=== PATIENT | male | born 1955 | race Caucasian/White ===

== ENCOUNTER 2017-07-21 19:52 | Emergency (ER) | payer MEDICAID, OTHER ==
[~2017-07-21 19:52] MED LIST: ATOR40TA16 PO; LISI-515 PO; METO25TA6 PO; PANT40TA3 PO; THERTAB15 PO; VITA100T2 PO; WALKER/ADULT/FO1 MIS
[2017-07-21 19:53] VITALS: BP 188/57; PULSE 108; RESP 16; TEMP 98.4; O2SAT 99
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
[2017-07-21] MEDS ORDERED: TRAM50TA PO (22:33)
[2017-07-21] MEDS ORDERED: GABA100C4 PO (22:33)
[2017-07-21] MEDS ORDERED: NORC5TAB PO (22:33)
[2017-07-21] MEDS ORDERED: NAPR500T PO (22:33)
--- NOTE | 2017-07-21 23:22 | RADRPT ---
EXAM DATE/TIME: 07/21/2017 21:25 [facility] COMPARISON: PELVIS COMPLETE MIN 3 VWS, September 21, 2016, 13:30. INDICATIONS : Patient complains of left hip pain status post fall today. MEDICAL HISTORY : None. SURGICAL HISTORY : Left hip ORIF. Left acetabulum ORIF. ENCOUNTER: Initial ACUITY: 1 day PAIN SCORE: 8/10 LOCATION: Left Hip FINDINGS: There is surgical hardware seen along the acetabulum. 3 screws are seen through the intertrochanteric region of the left femur. There appears to be lucency and suspected destruction of the superior acet abulum. The femoral head appears significantly reduced in size. A fracture is not clearly seen. CONCLUSION: Suspected destructive changes at the acetabulum and femoral head. These findings are difficult to ful ly evaluate given the overlying surgical hardware. Clarence Mar MD on July 21, 2017 at 23:19 Board Certified Radiologist. This report was verified electronically.
== END 2017-07-21 23:25 | disposition home or self-care (01) ==
LOC: NEPD 19:52
DX: S70.02XA Contusion of left hip, initial encounter (principal); E78.00 Pure hypercholesterolemia, unspecified; W05.0XXA Fall from non-moving wheelchair, initial encounter; Z79.899 Other long term (current) drug therapy
CPT/HCPCS: 73502; 99283

== ENCOUNTER → 2017-08-02 | Outpatient (CLI) | payer MEDICAID ==
[~2017-08-02] MED LIST changes: +GABA100C4 PO; +HYDR-3366 PO; +LISI10TA3 PO; +NAPR500T PO; +NORC5TAB PO; +TRAM50TA PO; -VITA100T2 PO; +XARE10TA PO
[2017-08-02 12:04] LABS: AUTOMATED NEUTROPHIL # 3.4 TH/MM3 (1.8-7.7); BASOPHIL # 0.1 TH/MM3 (0-0.2); BASOPHIL % 0.8 % (0.0-2.0); EOSINOPHIL # 0.3 TH/MM3 (0-0.4); EOSINOPHIL % 4.1 % (0.0-4.0); HEMATOCRIT 39.8 % (39.0-51.0); HEMO FLAGS DIFF FINAL; LYMPH % 32.7 % (9.0-44.0); LYMPHOCYTE # 2.3 TH/MM3 (1.0-4.8); MEAN CELL VOLUME 80.1 FL (80.0-100.0); MEAN CORPUSCULAR HGB CONC 33.7 % (32.0-36.0); MONO % 13.5 % (0.0-8.0); NEUT % 48.9 % (16.0-70.0); PLATELET COUNT 240 TH/MM3 (150-450); RED BLOOD COUNT 4.97 MIL/MM3 (4.50-5.90); RED CELL DISTRIBUTION WIDTH 14.5 % (11.6-17.2)
[2017-08-02 12:14] LABS: BLOOD, URINE TRACE (NEG); COMMENT (UR) CULT NOT INDICATED; CULTURE IF INDICATED CULT NOT INDICATED; GLUCOSE,URINE NEG (NEG); KETONE, URINE NEG (NEG); MUCUS URINE FEW /lpf (OCC); NITRITE,URINE NEG (NEG); URINE COLOR YELLOW (YELLW/STRAW)
[2017-08-02 12:16] LABS: APTT (PATIENT) 24.4 SEC (24.3-30.1)
[2017-08-02 12:24] LABS: WESTERGREN SEDIMENTATION RATE 31 mm/hr (0-20)
[2017-08-02 12:26] LABS: ANION GAP 7 MEQ/L (5-15); AST (GOT) 14 U/L (15-37); BLOOD UREA NITROGEN 14 MG/DL (7-18); CHLORIDE 106 MEQ/L (98-107); GLOMERULAR FILTRATION RATE 118 ML/MIN (>89); GLUCOSE,FASTING 101 MG/DL (74-99); POTASSIUM 4.2 MEQ/L (3.5-5.1); SODIUM (NA) 140 MEQ/L (136-145)
[2017-08-02 12:28] LABS: ALT (GPT) 29 U/L (12-78)
[2017-08-02 12:30] LABS: ALKALINE PHOSPHATASE 122 U/L (45-117); TOTAL BILIRUBIN ADULT 0.6 MG/DL (0.2-1.0)
--- NOTE | 2017-08-02 13:19 | RADRPT ---
EXAM DATE/TIME: 08/02/2017 12:55 [facility] COMPARISON: No previous studies available for comparison. INDICATIONS : Pre op for left total hip replacement. MEDICAL HISTORY : None. SURGICAL HISTORY : None. ENCOUNTER: Initial ACUITY: 1 day PAIN SCORE: 0/10 LOCATION: Bilateral chest FINDINGS: PA and lateral views of the chest demonstrate the lungs to be symmetrically aerated without evidence of mass, infiltrate or effusion. History of bypass.. Osseous structures are intact. CONCLUSION: No acute disease. Lance Ahumada MD FACR on August 02, 2017 at 13:13 Board Certified Radiologist. This report was verified electronically.
--- NOTE | 2017-08-03 19:33 | EKG ---
Date Performed: 08/02/2017 Time Performed: 12:25:55 PTAGE: 62 years EKG: Sinus rhythm NORMAL ECG PREVIOUS TRACING 09/08/2016 @ 09.45.06 DOCTOR: Antonino Castro Interpretating Date/Time 08/03/2017 19:31:35
== END ==
LOC: CPRE 11:25
PROVIDERS: ATTEND Orthopaedic Surgery Orthopaedic Trauma
DX: Z01.810 Encounter for preprocedural cardiovascular examination (principal); Z01.811 Encounter for preprocedural respiratory examination; Z01.818 Encounter for other preprocedural examination; Z01.812 Encounter for preprocedural laboratory examination; M25.50 Pain in unspecified joint; M79.609 Pain in unspecified limb; Z96.60 Presence of unspecified orthopedic joint implant; Z79.01 Long term (current) use of anticoagulants
CPT/HCPCS: 36415; 71020; 80053; 81001; 85025; 85610; 85652; 85730; 86140; 93005

== ENCOUNTER 2017-08-06 12:41 | Day surgery (SDC) | payer MEDICAID ==
[~2017-08-06 12:41] MED LIST changes: -ATOR40TA16 PO; -HYDR-3366 PO; -LISI-515 PO; -LISI10TA3 PO; -METO25TA6 PO; -NAPR500T PO; -PANT40TA3 PO; -THERTAB15 PO; -WALKER/ADULT/FO1 MIS; -XARE10TA PO
[2017-08-06] MEDS ORDERED: IOHEXOL 350 MG/ML 50 ML BTL (for RAD DIAG) OTHER ONE (12:42)
[2017-08-06 13:07] VITALS: BP 181/85; PULSE 97; RESP 20; TEMP 99; O2SAT 98
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
[2017-08-06 14:16] VITALS: BP 178/75; PULSE 85; RESP 17; TEMP 98.5; O2SAT 97
--- NOTE | 2017-08-06 16:47 | RADRPT ---
EXAM DATE/TIME: 08/06/2017 13:51 [facility] COMPARISON: No previous studies available for comparison. INDICATIONS : Patient presents with left hip pain in need of hip aspiration. MEDICAL HISTORY : HTN High cholesterol Acetabulum fracture SURGICAL HISTORY : CABG Hand surgery ORIF left hip ENCOUNTER: Initial ACUITY: >1 year PAIN SCORE: 3/10 LOCATION: Left hip FLUORO TIME: 0.8 minutes IMAGE SERIES: 1 CONTRAST: 0.5 cc Omnipaque 350 DEVICE(S): 22 gauge needle was placed into the left hip joint. FLUID: Total volume of 0.1 cc of clear red fluid was removed. Fluid specimen was submitted to the lab for evaluation. PROCEDURE : 1. Fluoroscopically guided left hip aspiration. The risks, benefits and alternatives to the procedure were explained and verbal and written consent w as obtained. The site was prepped in sterile fashion. Full sterile technique was used, including ca p, mask, sterile gloves and gown and a large sterile sheet. Hand hygiene and 2% chlorhexidine and/or betadine/alcohol prep was utilized per protocol for cutaneous antisepsis. The skin and subcutaneous tissues were infiltrated with local anesthetic solution. Under fluoroscopic guidance and utilizing an anterior oblique approach a 22 gauge spinal needle was p assed down to the subcapital femoral neck. Aspiration yielded no fluid. Contrast was injected into th e joint to confirm intra-articular position of the needle. 10 mL of sterile saline was instilled into the joint and aspiration allowed 0.1 mL return. This was sent for microbiological evaluation. The patient tolerated the procedure well and there were no complications. CONCLUSION: Uncomplicated aspiration as above. Remberto Betancourt Jr., MD on August 06, 2017 at 16:44 Board Certified Radiologist. This report was verified electronically.
== END 2017-08-06 14:30 | disposition home or self-care (01) ==
LOC: HROP 12:41 → HRIP 12:49 → HROP 14:30
PROVIDERS: ATTEND Physician Assistant
DX: S32.402A Unspecified fracture of left acetabulum, initial encounter for closed fracture (principal); I10 Essential (primary) hypertension; E78.00 Pure hypercholesterolemia, unspecified; Z95.1 Presence of aortocoronary bypass graft; Y92.410 Unspecified street and highway as the place of occurrence of the external cause
CPT/HCPCS: 20610; 77001; 87070; 87205; Q9967

== ENCOUNTER 2017-08-10 05:20 | Inpatient (IN) | payer MEDICAID, OTHER ==
[~2017-08-10] VITALS: Ht 171.4 cm; Wt 86.5 kg
[2017-08-10] MEDS ORDERED: CHLORHEXIDINE GLUCONATE 4% SOLN 120 ML BTL TOPICAL SCH (05:45)
[2017-08-10] MEDS ORDERED: INSULIN HUMAN REGULAR 1,000 UNITS/10 ML VIAL SQ PRN (05:45)
[2017-08-10] MEDS ORDERED: METOPROLOL TARTRATE 25 MG TAB PO PRN (05:45)
[2017-08-10] MEDS ORDERED: ceFAZolin 2 GM PREMIX 50 ML IV SCH (05:45)
[2017-08-10] MEDS ORDERED: POVIDONE IODINE 5% (ANTISEPSIS KIT) 4 APPLICATIONS EACH NARE PRN (05:45)
[2017-08-10] MEDS ORDERED: VANCOMYCIN 1000 MG/NS 250 ML (for <70 kg) IV SCH ×2 (05:45)
[2017-08-10] MEDS ORDERED: CHLORHEXIDINE GLUCONATE 2 % 1 PACK (2 CLOTHS) TOPICAL PRN (05:45)
[2017-08-10] MEDS ORDERED: SODIUM CHLORID 0.9% 500 ML IV PRN (05:45)
[2017-08-10] MEDS ORDERED: LACTATED RINGER'S 1000 ML IV PRN (05:45)
[2017-08-10] MEDS ORDERED: SODIUM CHLORIDE 0.9% IV SCH (06:00)
[2017-08-10] MEDS ORDERED: TRANEXAMIC ACID IV SCH (06:00)
[2017-08-10] MEDS ORDERED: EXPAREL PERI-ARTICULAR INJECTION (TOTAL VOL. 60 ML) P-ARTICULR SCH ×2 (06:00)
[2017-08-10] MEDS ORDERED: ACETAMINOPHEN 1000 MG/100 ML 100 ML IV ONE ×2 (06:05→10:15)
[2017-08-10] MEDS ORDERED: GENTAMICIN SULFATE 80 MG/2 ML VIAL ONE ×2 (06:32→11:00)
[2017-08-10] MEDS ORDERED: MORPHINE SULFATE 2 MG/ML INJ ONE (06:57)
[2017-08-10] MEDS ORDERED: MORPHINE SULFATE 2 MG/ML INJ IV ONE (07:30)
--- NOTE | 2017-08-10 11:56 | ECHRPT ---
Indication: vegetations CONCLUSIONS The left ventricular systolic function is low normal with an estimated ejection fraction in the rang e of 50- 55%. Normal left ventricular size. Trace mitral valve regurgitation. There is trace tricuspid valve regurgitation. The pulmonary valve is not well visualized. BP: / HR: Rhythm: MEASUREMENTS (Male / Female) Normal Values Technical Quality:Good 2D ECHO LV Diastolic Diameter PLAX 5.1 cm 4.2 - 5.9 / 3.9 - 5.3 cm LV Systolic Diameter PLAX 4.0 cm IVS Diastolic Thickness 1.4 cm 0.6 - 1.0 / 0.6 - 0.9 cm LVPW Diastolic Thickness 0.9 cm 0.6 - 1.0 / 0.6 - 0.9 cm LV Relative Wall Thickness 0.4 RV Internal Dim ED PLAX 3.4 cm FINDINGS LEFT VENTRICLE The left ventricular systolic function is low normal with an estimated ejection fraction in the rang e of 50- 55%. Normal left ventricular size. RIGHT VENTRICLE Normal right ventricular size and systolic function. LEFT ATRIUM The left atrial size is normal. RIGHT ATRIUM The right atrial size is normal. ATRIAL SEPTUM Normal atrial septal thickness without atrial level shunting by limited color doppler interrogation. AORTA The aortic root and proximal ascending aorta are normal in size on limited imaging. MITRAL VALVE Structurally normal mitral valve. Trace mitral valve regurgitation. AORTIC VALVE Trileaflet aortic valve. TRICUSPID VALVE Structurally normal tricuspid valve. There is trace tricuspid valve regurgitation. PULMONARY VALVE The pulmonary valve is not well visualized. VESSELS The inferior vena cava is normal in size. PERICARDIUM No pericardial effusion. Addison Milton MD, FACC, [facility] (Electronically Signed) Final Date:10 August 2017 11:56
--- NOTE | 2017-08-10 12:46 | MB ---
cc: JONY PACE M.D. DATE OF CONSULTATION 08/10/2017 REASON FOR CONSULTATION Kartik is a very pleasant 61-year-0ld gentleman with a history of coronary artery disease status post CABG approximately seven years ago, hypertension, severe osteoarthritis of the hip status post implant procedures, preop noncardiac surgery. The patient is essentially non-ambulatory with a walker. He can walk up to a half a block. He does not get short of breath or chest pain. States he has limited mobility with a wheelchair and does not get shortness breath or chest pain. REVIEW OF SYSTEMS Further review of systems is negative for any fevers, chills, cough GI, bleeding, orthopnea, except as noted in the history of present illness. PAST MEDICAL HISTORY Per history of present illness. MEDICATIONS IN THE HOSPITAL Consist of p.r.n. medications: 1. Vancomycin IV employee relations director 2. Cephazolin IV employee relations director ALLERGIES FOLIC ACID SOCIAL HISTORY Quit smoking a year ago. PHYSICAL EXAM VITAL SIGNS: There are no vital signs charted. GENERAL: He is alert and oriented times three in no acute distress. NECK: Supple. No JVD or bruit. CARDIOVASCULAR: S1 and S2. No murmurs, rubs or gallops. CHEST: Clear to auscultation bilaterally. ABDOMEN: Soft, nontender, nondistended. positive bowel sounds. EXTREMITIES: Shows no lower extremity edema. LABORATORY DATA On August 02, sodium 140, potassium 4.2, chloride 106, bicarb 27, BUN 14, creatinine 0.68, White count 7.9, hemoglobin 13.4, hematocrit 14.6, platelet count 240, INR is 1.0. EKG is normal. PHYSICAL EXAM VITAL SIGNS: Temperature 97.2, pulse 94, blood pressure 183/77, respiratory rate 20. Also note the Echo today's EF is 50-55% essentially normal. FINAL DIAGNOSIS 3. Osteoarthritis of the hip preop noncardiac surgery 4. Coronary disease 5. Status post CABG 6. Uncontrolled blood pressure 7. Hypertension DISCUSSION The patient's uncontrolled blood pressure is moderate to high risk for noncardiac surgery due to uncontrolled blood pressure, severely elevated systolic blood pressure. If possible would recommend controlling his blood pressure preop. MD ALBERTO Wolf/HELADIO /12:10 PM /12:32 PM
[2017-08-10] MEDS ORDERED: TETRACAINE PF 1% INJ 2 ML AMP ONE (13:12)
[2017-08-10] MEDS ORDERED: PROPOFOL 500 MG/50 ML INJ 100 ML ONE (14:34)
[2017-08-10] MEDS ORDERED: PROPOFOL 200 MG/20 ML AMP ONE (16:17)
--- NOTE | 2017-08-10 16:38 | PD.OP ---
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 My P.A. presence was necessary throughout this case for the manipulation and positioning of the surgical extremity. My P.A. was assisting me throughout the duration of this procedure. The skill set of a physician nurses medical assistants phlebotomists was medically necessary to complete this procedure. During the surgical case the surgical resident was working at the back table and the physician nurses medical assistants phlebotomists was directly assisting me. Operation and Findings: Weight bear as tolerated. DRAINS: 7-mm OSCAR drain. IMPLANTS USED DePuy Corail size [11] collared stem with a size [56] [place] Gription cup, 56/ 36 altrx liner, and a [36+1.5] ceramic Biolox ceramic head. DETAILS OF PROCEDURE: This patient has a long history of hip pain. Patient was found to have severe osteoarthritis and avascular necrosis secondary to previous acetabular fracture. Patient had complete collapse of the femoral head.. The patient had radiographic evidence of joint space narrowing with [id number] arthritis and osteophytes around the acetabulum as well as the femoral head. The patient failed conservative treatment with pain medications, anti-inflammatories, physical therapy, assistive devices including a cane, as well as therapeutic injection of the hip. The patient wished to proceed with surgery and informed consent was obtained. Operative site was marked. I discussed both posterior approach and anterior approach with patient decision was made for posterior approach. Patient was brought to OR and placed on OR table. IV sedation and general anesthesia was administered by anesthesiologist. Patient was positioned lateral on the operating room table and was given IV antibiotics. Time-out procedure was performed. The operative hip and leg were prepped with alcohol followed by Hibiclens and draped in the usual sterile fashion. Clean Air Suite was used for this procedure. The procedure began with a 8-inch incision over the posterolateral thigh through his previous incision. Subcutaneous tissue was dissected with Bovie. The fascia of the iliotibial band was incised. Gluteus muscle was split in line with fibers. Charnley retractor was placed. Piriformis and external rotator muscles were identified and then released from the posterior femur. There was dense scar tissue around the hip capsule. Care was taken to avoid injury to neurovascular structures including sciatic nerve. The hip capsule was incised and sutures were placed to help retract the capsule. At this point the femoral head and neck were identified. With soft tissue protected, oscillating saw was used to make a cut through the femoral neck, the femoral head was now removed. The femoral head was extremely flat. At this point attention was turned to preparation of the acetabulum. The labrum was excised. A portion of the hypertrophic capsule was also excised. Several screws were removed from the plate. The small spring plate was also removed. The cannulated screw from the anterior column was also removed. The acetabulum was sequentially reamed up to size 56. Care was taken to maintain appropriate version. A trial cup was placed and was found to be a good fit. A [place] cup was now fully impacted into the acetabulum and found to have excellent fit. 2 screws were placed through the cup for additional stability. The +4 10 56 /36 liner was now impacted into the cup. At this point attention was turned towards preparation of the proximal femur. 3 screws were removed from the proximal femur. Retractors were placed around the proximal femur to allow for exposure. A box osteotome was used to remove the lateral cortex of the femoral neck. A broach was used to help lateralize the prosthesis. Canal finder was used to create a path down the canal. Next, the canal was sequentially broached until there was an excellent fit. Calcar planer was placed. A trial head was placed and the hip was reduced. Trial head was now was placed and the hip was found to have excellent stability with good range of motion. The leg lengths were measured under clinically and found to be equal compared to preoperatively. Trial broach was removed. The Corail stem was opened. Stem was fully impacted into the proximal femur in appropriate version. The femoral head was placed. The hip was again reduced. The wound was thoroughly irrigated. Hip capsule, external rotators, and iliotibial band was closed with #1 Vicryl. A drain was placed deep into the wound. Subcutaneous tissue was closed with 3-0 Vicryl and the skin was closed with natalia and Dermabond skin closure. The capsule layers were injected with a mixture of saline and bupivicaine. Dressings were applied. The patient was transferred to Recovery Room in stable condition. Ben Mcneil MD Aug 10, 2017 16:38
[2017-08-10] MEDS ORDERED: Post-op Orders (for Pharmacy) MISC XX ONE (16:45)
[2017-08-10] MEDS ORDERED: NALOXONE HCL 0.4 MG/ML AMP IV PUSH PRN (16:45)
[2017-08-10] MEDS ORDERED: diphenhydrAMINE HCL 25 MG CAP PO PRN (16:45)
[2017-08-10] MEDS ORDERED: SODIUM CHLORIDE 0.9% FLUSH 5 ML FLUSH IVF PRN (16:45)
[2017-08-10] MEDS ORDERED: DO NOT ADM ANY ANTICOAGULANT DRUGS PRN (17:03)
[2017-08-10] MEDS ORDERED: KETOROLAC TROMETHAMINE 30 MG/ML (IVP) VIAL ONE (17:09)
[2017-08-10] MEDS ORDERED: *MEPERIDINE 25 MG INJ VIAL PERIprocedural Use ONLY ONE (17:10)
[2017-08-10] MEDS ORDERED: *morphine SULFATE 8 MG/ML PERIprocedure ONLY ONE (17:28)
--- NOTE | 2017-08-10 17:53 | RADRPT ---
EXAM DATE/TIME: 08/10/2017 17:10 [facility] COMPARISON: HIP LEFT (AP&LAT 2/3VWS) WO AP PELVIS, July 21, 2017, 21:25. HIP LEFT (AP&LAT 2/3VWS) W AP PELVIS , September 16, 2016, 15:47. INDICATIONS : Post op left hip surgery. MEDICAL HISTORY : acetabular fracture SURGICAL HISTORY : orif left hip ENCOUNTER: Initial ACUITY: 1 day PAIN SCORE: 5/10 LOCATION: Left hip FINDINGS: Examination of the left hip was performed with AP Pelvis. Multiple sideplates and osseous screws secu re an old acetabular fracture. There is an interval left total hip arthroplasty. Both the femoral and acetabular components appear to be appropriately positioned without fracture. OSCAR type drain overlies the prosthesis. CONCLUSION: 1. Sideplate and osseous screws securing the left acetabulum. These were present previously. 2. Interval left total hip arthroplasty appears to be radiographically intact. No fracture. Juan A Mishra MD on August 10, 2017 at 17:50 Board Certified Radiologist. This report was verified electronically.
[2017-08-10 18:25] VITALS: BP 155/69; PULSE 62; RESP 17; TEMP 96.2; O2SAT 97
[2017-08-10] MEDS: ACETAMINOPHEN/HYDROcodone 325 MG/10 MG TAB PO PRN (19:17)
[2017-08-10] MEDS: GABAPENTIN 100 MG CAP PO SCH (19:17)
[2017-08-10] MEDS: SODIUM CHLORIDE 0.9% FLUSH 5 ML FLUSH IVF SCH (19:36)
[2017-08-10] MEDS: ceFAZolin 2 GM PREMIX 50 ML IV SCH (19:36)
[2017-08-10 19:52] VITALS: O2SAT 97
[2017-08-10 20:50] VITALS: BP 152/69; PULSE 95; RESP 18; TEMP 97.6; O2SAT 98
[2017-08-10] MEDS: MORPHINE SULFATE 4 MG/ML INJ IV PUSH PRN (21:25)
[2017-08-10] MEDS: KETOROLAC TROMETHAMINE 30 MG/ML (IVP) VIAL IV PUSH SCH (21:26)
[2017-08-11 00:40] VITALS: BP 139/63; PULSE 84; RESP 17; TEMP 98.2; O2SAT 99
[2017-08-11] MEDS: ceFAZolin 2 GM PREMIX 50 ML IV SCH ×4 (02:46→20:51)
[2017-08-11] MEDS: ACETAMINOPHEN/HYDROcodone 325 MG/10 MG TAB PO PRN ×5 (02:47→20:52)
[2017-08-11] MEDS: VANCOMYCIN INJ 1,000 MG in SODIUM CHLOR 0.9% 250 ML INJ 250 ML IV SCH ×2 (03:47→16:07)
[2017-08-11 04:33] VITALS: BP 154/67; PULSE 88; RESP 17; TEMP 98.8; O2SAT 99
[2017-08-11] MEDS: KETOROLAC TROMETHAMINE 30 MG/ML (IVP) VIAL IV PUSH SCH ×3 (05:33→22:38)
--- NOTE | 2017-08-11 06:46 | PD.ORT.PN ---
Subjective Subjective Remarks Kartik is postop day #1 status post conversion to left total hip arthroplasty with removal of hardware from acetabulum. He is relatively comfortable. Objective Vitals Vital Signs Date Time Temp Pulse Resp B/P (MAP) Pulse Ox O2 Delivery O2 Flow Rate FiO2 08/11/17 04:33 98.8 88 17 154/67 (96) 99 08/11/17 00:40 98.2 84 17 139/63 (88) 99 08/10/17 20:50 97.6 95 18 152/69 (96) 98 08/10/17 19:52 97 Nasal Cannula 2.00 08/10/17 18:25 96.2 62 17 155/69 (97) 97 08/10/17 18:10 97.7 68 19 145/64 (91) 100 Nasal Cannula 2 08/10/17 18:00 66 16 150/57 (88) 100 Nasal Cannula 2 08/10/17 17:45 67 19 149/75 (99) 100 Nasal Cannula 2 08/10/17 17:30 66 19 150/67 (94) 100 Nasal Cannula 2 08/10/17 17:15 69 20 152/68 (96) 100 Nasal Cannula 2 08/10/17 17:00 97.6 65 20 102/57 (72) 98 Nasal Cannula 2 I/O 08/10/17 08/10/17 08/10/17 08/11/17 08/11/17 08/11/17 07:00 15:00 23:00 07:00 15:00 23:00 Intake Total 4110 ml 300 ml Output Total 1880 ml 590 ml Balance 2230 ml -290 ml Intake Oral 360 ml IV Total 50 ml 300 ml Other 3700 ml Output Urine Total 1275 ml 500 ml Drainage Total 105 ml 90 ml Estimated Blood Loss 500 ml # Bowel Movements 0 Imaging Last 24 hours Impressions Hip and Pelvis X-Ray 08/10/17 1631 Signed Impressions: Service Date/Time: Thursday, August 10, 2017 17:10 - CONCLUSION: 1. Sideplate and osseous screws securing the left acetabulum. These were present previously. 2. Interval left total hip arthroplasty appears to be radiographically intact. No fracture. Juan A Mishra MD Objective Remarks Clean dry dressing intact. Patient does have a foot drop from initial acetabular fracture. Sensation intact left foot. drain in place Assessment & Plan Assessment and Plan Postop day #1 status post conversion to left total hip arthroplasty 50% weightbearing with strict posterior hip precautions SCDs and SHERLYN thomas Lovenox/Trisha [facility] on Wednesday Ben Maldonado MD Aug 11, 2017 06:46
[2017-08-11] MEDS ORDERED: HYDR-3366 PO (06:47)
[2017-08-11] MEDS ORDERED: XARE10TA PO (06:47)
[2017-08-11 07:53] LABS: HEMATOCRIT 24.8 % (39.0-51.0); REVIEW FLAG FINAL
[2017-08-11 08:00] VITALS: BP 144/65; PULSE 79; RESP 17; TEMP 98; O2SAT 99
[2017-08-11] MEDS: SODIUM CHLORIDE 0.9% FLUSH 5 ML FLUSH IVF SCH ×2 (09:00→20:52)
[2017-08-11] MEDS: GABAPENTIN 100 MG CAP PO SCH ×3 (09:29→18:44)
[2017-08-11 12:00] VITALS: BP 147/67; PULSE 88; RESP 19; TEMP 98.4; O2SAT 99
[2017-08-11 16:00] VITALS: BP 152/68; PULSE 81; RESP 18; TEMP 98; O2SAT 100
[2017-08-11] MEDS: ENOXAPARIN SODIUM 30 MG/0.3 ML SYRINGE SQ SCH (16:07)
[2017-08-11] MEDS ORDERED: LISI10TA3 PO (19:22)
[2017-08-11] MEDS ORDERED: METO25TA6 PO (19:22)
[2017-08-11 20:33] VITALS: BP 138/63; PULSE 92; RESP 18; TEMP 99.6; O2SAT 100
[2017-08-11] MEDS: DOCUSATE SODIUM 100 MG CAP PO SCH (20:51)
[2017-08-12] MEDS: MORPHINE SULFATE 4 MG/ML INJ IV PUSH PRN (03:49)
[2017-08-12] MEDS: ceFAZolin 2 GM PREMIX 50 ML IV SCH ×4 (03:49→20:50)
[2017-08-12] MEDS: VANCOMYCIN INJ 1,000 MG in SODIUM CHLOR 0.9% 250 ML INJ 250 ML IV SCH ×2 (03:50→15:47)
[2017-08-12] MEDS: ENOXAPARIN SODIUM 30 MG/0.3 ML SYRINGE SQ SCH ×2 (03:51→15:46)
--- NOTE | 2017-08-12 07:08 | PD.ORT.PN ---
Subjective Subjective Remarks POD 2 s/p NAVI with conversion to left total hip reports significant pain overnight. states difficulty ambulating but working with therapy. he is extremely anxious about going home. reports that insurance will not cover rehab stay Objective Vitals Vital Signs Date Time Temp Pulse Resp B/P (MAP) Pulse Ox O2 Delivery O2 Flow Rate FiO2 08/11/17 20:33 99.6 92 18 138/63 (88) 100 08/11/17 16:00 98.0 81 18 152/68 (96) 100 08/11/17 12:00 98.4 88 19 147/67 (93) 99 08/11/17 08:00 98.0 79 17 144/65 (91) 99 I/O 08/11/17 08/11/17 08/11/17 08/12/17 08/12/17 08/12/17 07:00 15:00 23:00 07:00 15:00 23:00 Intake Total 780 ml 720 ml 660 ml 50 ml Output Total 590 ml 150 ml 400 ml Balance 190 ml 570 ml 260 ml 50 ml Intake Oral 480 ml 720 ml 360 ml IV Total 300 ml 300 ml 50 ml Output Urine Total 500 ml 125 ml 400 ml Drainage Total 90 ml 25 ml # Voids 2 # Bowel Movements 0 0 Result Diagram: 08/11/17 0633 Imaging Last 24 hours Impressions Hip and Pelvis X-Ray 08/10/17 1631 Signed Impressions: Service Date/Time: Thursday, August 10, 2017 17:10 - CONCLUSION: 1. Sideplate and osseous screws securing the left acetabulum. These were present previously. 2. Interval left total hip arthroplasty appears to be radiographically intact. No fracture. Juan A Mishra MD Objective Remarks LLE: Clean dry dressing intact. Patient does have a foot drop from initial acetabular fracture. Sensation intact left foot. drain in place. +CKS. Assessment & Plan Assessment and Plan 1) status post conversion to left total hip arthroplasty - POD 2 50% weightbearing with strict posterior hip precautions SCDs and SHERLYN thomas Lovenox/Xarelto CM to see if [facility] bed for rehab is an option pain control Baudilio Hare Aug 12, 2017 07:08
[2017-08-12 08:00] VITALS: BP 150/60; PULSE 80; RESP 19; TEMP 99.4; O2SAT 96
[2017-08-12] MEDS: DOCUSATE SODIUM 100 MG CAP PO SCH ×2 (08:09→20:50)
[2017-08-12] MEDS: GABAPENTIN 100 MG CAP PO SCH ×3 (08:10→18:24)
[2017-08-12] MEDS: SODIUM CHLORIDE 0.9% FLUSH 5 ML FLUSH IVF SCH ×2 (08:10→20:50)
[2017-08-12] MEDS: ACETAMINOPHEN/HYDROcodone 325 MG/10 MG TAB PO PRN ×4 (08:10→20:51)
[2017-08-12 09:07] VITALS: O2SAT 97
[2017-08-12 12:00] VITALS: BP 155/70; PULSE 76; RESP 18; TEMP 98.3; O2SAT 100
[2017-08-12 15:00] VITALS: BP 142/56; PULSE 86; RESP 18; TEMP 98.9; O2SAT 100
[2017-08-12 20:15] VITALS: BP 131/60; PULSE 76; RESP 18; TEMP 99.4; O2SAT 99
[2017-08-12 23:39] VITALS: BP 156/67; PULSE 94; RESP 18; TEMP 99.4; O2SAT 99
[2017-08-13] MEDS: ACETAMINOPHEN/HYDROcodone 325 MG/10 MG TAB PO PRN ×6 (00:10→20:51)
[2017-08-13] MEDS: ENOXAPARIN SODIUM 30 MG/0.3 ML SYRINGE SQ SCH ×2 (04:59→15:35)
[2017-08-13 07:47] VITALS: BP 153/68; PULSE 81; RESP 18; TEMP 99; O2SAT 97
[2017-08-13] MEDS: DOCUSATE SODIUM 100 MG CAP PO SCH ×2 (08:56→20:50)
[2017-08-13] MEDS: GABAPENTIN 100 MG CAP PO SCH ×3 (08:56→17:50)
[2017-08-13] MEDS: SODIUM CHLORIDE 0.9% FLUSH 5 ML FLUSH IVF SCH ×2 (08:57→20:49)
[2017-08-13 11:51] VITALS: BP 124/60; PULSE 80; RESP 18; TEMP 99.7; O2SAT 99
--- NOTE | 2017-08-13 13:18 | PD.ORT.PN ---
Subjective Subjective Remarks Pain controlled slowly progressing with physical therapy Objective Vitals Vital Signs Date Time Temp Pulse Resp B/P (MAP) Pulse Ox O2 Delivery O2 Flow Rate FiO2 08/13/17 11:51 99.7 80 18 124/60 (81) 99 08/13/17 09:57 16 08/13/17 07:47 99.0 81 18 153/68 (96) 97 08/12/17 23:39 99.4 94 18 156/67 (96) 99 08/12/17 20:15 99.4 76 18 131/60 (83) 99 08/12/17 15:00 98.9 86 18 142/56 (84) 100 I/O 08/12/17 08/12/17 08/12/17 08/13/17 08/13/17 08/13/17 07:00 15:00 23:00 07:00 15:00 23:00 Intake Total 540 ml 660 ml 720 ml Output Total 650 ml 825 ml Balance -110 ml 660 ml -105 ml Intake Oral 240 ml 360 ml 720 ml IV Total 300 ml 300 ml Output Urine Total 650 ml 825 ml # Voids 2 # Bowel Movements 0 0 0 Result Diagram: 08/11/17 0633 Imaging Last 24 hours Impressions Hip and Pelvis X-Ray 08/10/17 1631 Signed Impressions: Service Date/Time: Thursday, August 10, 2017 17:10 - CONCLUSION: 1. Sideplate and osseous screws securing the left acetabulum. These were present previously. 2. Interval left total hip arthroplasty appears to be radiographically intact. No fracture. Juan A Mishra MD Objective Remarks LLE: Clean dry dressing intact. Patient does have a foot drop from initial acetabular fracture. Sensation intact left foot. +CKS. Assessment & Plan Assessment and Plan 1) status post conversion to left total hip arthroplasty - POD 3 50% weightbearing with strict posterior hip precautions SCDs and SHERLYN thomas Lovenox/Xarelto CM to see if [facility] bed for rehab is an option pain control If discharge to home we will plan for Wednesday Kingsley Suarez Jr. Aug 13, 2017 13:18
[2017-08-13 16:00] VITALS: BP 124/64; PULSE 82; RESP 18; TEMP 98.9; O2SAT 98
[2017-08-13 20:00] VITALS: BP 129/61; PULSE 93; RESP 16; TEMP 100.1; O2SAT 99
[2017-08-14] VITALS: BP 129/53; PULSE 82; RESP 17; TEMP 100.4; O2SAT 97
[2017-08-14] MEDS: ACETAMINOPHEN/HYDROcodone 325 MG/10 MG TAB PO PRN ×4 (03:26→15:49)
[2017-08-14] MEDS: ENOXAPARIN SODIUM 30 MG/0.3 ML SYRINGE SQ SCH ×2 (03:26→15:49)
[2017-08-14 04:00] VITALS: BP 145/70; PULSE 84; RESP 16; TEMP 99.1; O2SAT 98
--- NOTE | 2017-08-14 07:04 | PD.ORT.PN ---
Subjective Subjective Remarks POD 4 s/p NAVI with conversion to left total hip states improving significantly. ambulating with walker and therapy. Objective Vitals Vital Signs Date Time Temp Pulse Resp B/P (MAP) Pulse Ox O2 Delivery O2 Flow Rate FiO2 08/14/17 04:24 17 08/14/17 04:00 99.1 84 16 145/70 (95) 98 08/14/17 00:00 100.4 82 17 129/53 (78) 97 08/13/17 20:00 100.1 93 16 129/61 (83) 99 08/13/17 16:00 98.9 82 18 124/64 (84) 98 08/13/17 11:51 99.7 80 18 124/60 (81) 99 08/13/17 07:47 99.0 81 18 153/68 (96) 97 I/O 08/13/17 08/13/17 08/13/17 08/14/17 08/14/17 08/14/17 07:00 15:00 23:00 07:00 15:00 23:00 Intake Total 720 ml 600 ml 960 ml 600 ml Output Total 825 ml Balance -105 ml 600 ml 960 ml 600 ml Intake Oral 720 ml 600 ml 960 ml 600 ml Output Urine Total 825 ml # Voids 3 3 2 # Bowel Movements 0 0 Result Diagram: 08/11/17 0633 Imaging Last 24 hours Impressions Hip and Pelvis X-Ray 08/10/17 1631 Signed Impressions: Service Date/Time: Thursday, August 10, 2017 17:10 - CONCLUSION: 1. Sideplate and osseous screws securing the left acetabulum. These were present previously. 2. Interval left total hip arthroplasty appears to be radiographically intact. No fracture. Juan A Mishra MD Objective Remarks LLE: Clean dry dressing intact. Patient does have a foot drop from initial acetabular fracture. Sensation intact left foot. +CKS. Assessment & Plan Assessment and Plan 1) status post conversion to left total hip arthroplasty - POD 4 50% weightbearing with strict posterior hip precautions SCDs and SHERLYN hose Lovenox/Xarelto pain control plan for DC home today/tomorrow with HHC f/u with Joel or [facility] in 2 weeks Baudilio Hare Aug 14, 2017 07:04
--- NOTE | 2017-08-14 07:05 | HHI.FF ---
Face to Face Verification Diagnosis: (1) Acetabulum fracture, left Physical Therapy Gait training, Transfer training, bed to chair Hip: Total hip, Protocol: Left, Posterior hip precautions Canvas Knee Splint: Other (only while in bed) Left LE Weight Bearing: Partial WB 50% Nursing Dressing Changes: Daily dressing change, Coverderm/Primapore (add xeroform on POD 10) I have seen patient Kartik Teresa on 08/14/17. My clinical findings support the need for the requested home health care services because: Ltd mobility - disease progression I certify that my clinical findings support that this patient is homebound because: Post-op weakness Baudilio Hare Aug 14, 2017 07:05
[2017-08-14] MEDS ORDERED: SOD PHOSPHATE/SOD BIPHOSPHATE (ADULT) ENEMA 133ML RECTAL ONE (08:30)
[2017-08-14 08:47] VITALS: BP 150/62; PULSE 85; RESP 16; TEMP 98.7; O2SAT 100
[2017-08-14] MEDS: DOCUSATE SODIUM 100 MG CAP PO SCH (08:49)
[2017-08-14] MEDS: GABAPENTIN 100 MG CAP PO SCH ×2 (08:49→12:04)
[2017-08-14] MEDS: SODIUM CHLORIDE 0.9% FLUSH 5 ML FLUSH IVF SCH (08:59)
== END 2017-08-14 18:40 | disposition home or self-care (01) | DRG 470 ==
LOC: HSDI 05:20 → N06A 18:37
PROVIDERS: ADMIT Orthopaedic Surgery Orthopaedic Trauma; ATTEND Orthopaedic Surgery Orthopaedic Trauma
PROC: 0QP504Z Removal of Internal Fixation Device from Left Acetabulum, Open Approach (ICD-10-PCS; 2017-08-10)
PROC: 0SRB04A Replacement of Left Hip Joint with Ceramic on Polyethylene Synthetic Substitute, Uncemented, Open Approach (ICD-10-PCS; principal; 2017-08-10 13:49)
DX: M87.252 Osteonecrosis due to previous trauma, left femur (principal); I10 Essential (primary) hypertension; M16.12 Unilateral primary osteoarthritis, left hip; I25.10 Atherosclerotic heart disease of native coronary artery without angina pectoris; K59.00 Constipation, unspecified; S32.46 Associated transverse-posterior fracture of acetabulum; Z95.1 Presence of aortocoronary bypass graft; Z87.891 Personal history of nicotine dependence
CPT/HCPCS: 73502; 76000; 85014; 85018; 86850; 86900; 86901; 86920; 87015; 87070; 87102; 87116; 87176; 87205; 87206; 93308; C9290; J0131; J0690; J1580; J1650; J1885; J2175; J2270; J3370; J7050; J7120

== ENCOUNTER 2018-08-02 23:55 | Inpatient (IN) ==
[2018-08-03] MEDS ORDERED: Morphine Inj 4 MG/ML Vial IV.PUSH ONE (00:29)
--- NOTE | 2018-08-03 00:35 | ED ---
HPI General Chief Complaint: Chest Pain Stated Complaint: Sharp chest pain, N/V Time Seen by Provider: 08/03/18 00:14 Source: patient Mode of arrival: ambulatory Limitations: no limitations History of Present Illness HPI narrative: The patient 63 years old and arrives to the ER complaining of chest pain about 1/10 described as a 1 pound weight resting on the region of the sternum and left chest. It was first noticed at about 11:00 today, approximately 11 1/2 hours prior. 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 He was having cigarette the back porch and shortly after standing and walking into the house the chest pain started. Patient took a 325 aspirin and chewed it. He went to sleep and woke up chest pain is gone. He returned to work this evening at about 7 and developed again the chest heaviness and was advised to come to the ED. At the end of the interview of the chest pain returned again retrosternal with a 1 pound weight-like sensation. He reports a history of CABG approximately 7 or 8 years ago. He is somewhat uncertain regarding whether or not he has hypertension high cholesterol or her chronic medical illness otherwise which he attributes to intermittent and poor primary care follow-up over the past few years due to unemployment status and financial difficulty. He reports currently smoking about 6 cigarettes/day. Patient also reports cough lately he believes there might be a pneumonia or URI contributing to his symptoms. MD complaint: Reports chest pain STEMI Alert: No Onset (ago): hour(s) Duration: intermittent Pain location: Reports substernal and left chest Severity scale (1-10): 1 Quality: Reports heaviness Pain radiation: Reports none Relieving factors: other Related Data Allergies Allergy/AdvReac Type Severity Reaction Status Date / Time folic acid Allergy Mild Rash Verified 08/10/17 05:42 Review of Systems ROS: all other systems reviewed are negative PMFSH Family History Family History Other Family history normal Social History Social History Recent Travel in [facility] within the Last 8 Weeks: No Recent Out of Country Travel within the Last 8 Weeks: No Exam Narrative Exam Narrative: GENERAL: 63-year-old male well-nourished well-developed speaking full sentences no acute distress SKIN: Focused skin assessment warm/dry. HEAD: Atraumatic. Normocephalic. EYES: Pupils equal and round. No scleral icterus. No injection or drainage. ENT: No nasal bleeding or discharge. Mucous membranes pink and moist. NECK: Trachea midline. No JVD. CARDIOVASCULAR: Regular rate and rhythm. No murmur appreciated. RESPIRATORY: No accessory muscle use. Clear to auscultation. Breath sounds equal bilaterally. GASTROINTESTINAL: Abdomen soft, non-tender, nondistended. Hepatic and splenic margins not palpable. MUSCULOSKELETAL: No obvious deformities. No clubbing. No cyanosis. No edema. NEUROLOGICAL: Awake and alert. No obvious cranial nerve deficits. Motor grossly within normal limits. Normal speech. PSYCHIATRIC: Appropriate mood and affect; insight and judgment normal. Course Initial Documented Vital Signs Temperature 98.5 F 08/02/18 23:59 Pulse Rate 89 08/02/18 23:59 Respiratory Rate 18 08/02/18 23:59 Blood Pressure 183/81 H 08/02/18 23:59 Pulse Oximetry 97 08/02/18 23:59 Last Documented Vital Signs Temperature 98.5 F 08/02/18 23:59 Pulse Rate 55 L 08/03/18 02:05 Respiratory Rate 16 08/03/18 02:05 Blood Pressure 168/77 H 08/03/18 02:05 Pulse Oximetry 97 08/03/18 02:05 Critical Care Time Critical Care Time: Yes Total Critical Care Time: 35 Attestation: Aggregate critical care time was 35 minutes. Time to perform other separately billable procedures was not included in the critical care time. My time did not include minutes spent treating any other patients simultaneously or on activities that did not directly contribute to the patient's treatment. The services I provided to this patient were to treat and/or prevent clinically significant deterioration that could result in: coronary occlusion, infarcted myocardium, heart failure I provided critical care services requiring my management, as noted below: Chart data review, documentation time, medication orders and management, vital sign assessments/reviewing monitor data, ordering and reviewing lab tests, ordering and interpreting/reviewing x-rays and diagnostic studies, care of the patient and discussion of the patient with the admitting physicians. Medical Decision Making MDM Narrative Medical decision making narrative: Patient has an NSTEMI. Heparin started. Nitro given here. Metoprolol ordered. Patient is chest pain-free at the time of reassessment approximately 2:05 AM. Case discussed with hospitalist Dr. Salazar. Admission for an STEMI evaluation. Medical Screen Exam Complete: Yes Emergency Medical Condition: Yes Differential Diagnosis Differential Diagnosis: NSTEMI, unstable angina, coronary vasospasm, PE, PTX, aortic dissection, pericarditis, myocarditis, endocarditis, PNA, esophageal disease, aneurysm, musculoskeletal etiologies, anxiety, cocaine/sympathomimetic abuse Lab Data Lab results reviewed: Yes I reviewed the patient's lab results. Result diagrams: 08/03/18 00:30 08/03/18 00:30 Lab Results 08/03/18 08/03/18 08/03/18 Range/Units 00:30 00:30 00:30 WBC 8.8 (4.0-11.0) th/mm3 RBC 5.07 (4.50-5.90) mil/mm3 Hgb 14.8 (13.0-17.0) gm/dL Hct 43.9 (39.0-51.0) % MCV 86.7 (80.0-100.0) fL MCH 29.2 (27.0-34.0) pg MCHC 33.8 (32.0-36.0) % RDW 13.2 (11.6-17.2) % Plt Count 205 (150-450) th/mm3 MPV 8.6 (7.0-11.0) fL Neut % (Auto) 46.1 (16.0-70.0) % Lymph % (Auto) 34.2 (9.0-44.0) % [place] % (Auto) 14.1 H (0.0-8.0) % Eos % (Auto) 4.5 H (0.0-4.0) % Baso % (Auto) 1.1 (0.0-2.0) % Neut # (Auto) 4.1 (1.8-7.7) th/mm3 Lymph # (Auto) 3.0 (1.0-4.8) th/mm3 [place] # (Auto) 1.2 H (0.0-0.9) th/mm3 Eos # (Auto) 0.4 (0.0-0.4) th/mm3 Baso # (Auto) 0.1 (0.0-0.2) th/mm3 WBC Differential . Differential Comment Auto diff final PT (9.8-11.6) sec INR Ratio APTT (24.3-30.1) sec Sodium 141 (136-145) meq/L Potassium 4.0 (3.5-5.1) meq/L Chloride 109 H (98-107) meq/L Carbon Dioxide 25.0 (21.0-32.0) meq/L Anion Gap 7 (5-15) meq/L BUN 14 (7-18) mg/dL Creatinine 0.98 (0.60-1.30) mg/dL Estimated GFR 77 L (>89) mL/min Random Glucose 153 H (74-106) mg/dL Calcium 8.7 (8.5-10.1) mg/dL Total Bilirubin 0.4 (0.2-1.0) mg/dL AST 16 (15-37) U/L ALT 32 (12-78) U/L Alkaline Phosphatase 116 (45-117) U/L Troponin I 0.38 H (0.02-0.05) ng/mL B-Natriuretic Peptide 20 (0-100) pg/mL Total Protein 6.7 (6.4-8.2) g/dL Albumin 3.4 (3.4-5.0) g/dL Lipase 72 L (73-393) U/L 08/03/18 Range/Units 01:55 WBC (4.0-11.0) th/mm3 RBC (4.50-5.90) mil/mm3 Hgb (13.0-17.0) gm/dL Hct (39.0-51.0) % MCV (80.0-100.0) fL MCH (27.0-34.0) pg MCHC (32.0-36.0) % RDW (11.6-17.2) % Plt Count (150-450) th/mm3 MPV (7.0-11.0) fL Neut % (Auto) (16.0-70.0) % Lymph % (Auto) (9.0-44.0) % [place] % (Auto) (0.0-8.0) % Eos % (Auto) (0.0-4.0) % Baso % (Auto) (0.0-2.0) % Neut # (Auto) (1.8-7.7) th/mm3 Lymph # (Auto) (1.0-4.8) th/mm3 [place] # (Auto) (0.0-0.9) th/mm3 Eos # (Auto) (0.0-0.4) th/mm3 Baso # (Auto) (0.0-0.2) th/mm3 WBC Differential Differential Comment PT 10.1 (9.8-11.6) sec INR 1.0 Ratio APTT 22.2 L (24.3-30.1) sec Sodium (136-145) meq/L Potassium (3.5-5.1) meq/L Chloride (98-107) meq/L Carbon Dioxide (21.0-32.0) meq/L Anion Gap (5-15) meq/L BUN (7-18) mg/dL Creatinine (0.60-1.30) mg/dL Estimated GFR (>89) mL/min Random Glucose (74-106) mg/dL Calcium (8.5-10.1) mg/dL Total Bilirubin (0.2-1.0) mg/dL AST (15-37) U/L ALT (12-78) U/L Alkaline Phosphatase (45-117) U/L Troponin I (0.02-0.05) ng/mL B-Natriuretic Peptide (0-100) pg/mL Total Protein (6.4-8.2) g/dL Albumin (3.4-5.0) g/dL Lipase (73-393) U/L ECG Data Attestation: I personally reviewed and interpreted this ECG as follows: (SINus, normal axis and intervals, non-specific TW changes multiple leads) Discharge Plan Discharge Disposition Patient Disposition: 30 Still Patient Physicians Team ED Provider: Karthik De La Torre Primary Care Provider: Primary Care Sonam,Zohreh Attending Provider: Mali Salazar Status ED Status: Admitted Patient
[2018-08-03 00:46] LABS: Baso # (Auto) 0.1 th/mm3 (0.0-0.2); Baso % (Auto) 1.1 % (0.0-2.0); Eos # (Auto) 0.4 th/mm3 (0.0-0.4); Eos % (Auto) 4.5 % (0.0-4.0); Hematocrit 43.9 % (39.0-51.0); Hemoglobin 14.8 gm/dL (13.0-17.0); Lymph % (Auto) 34.2 % (9.0-44.0); Mean Corpuscular HGB Conc 33.8 % (32.0-36.0); Mean Corpuscular Hemoglobin 29.2 pg (27.0-34.0); Mean Corpuscular Volume 86.7 fL (80.0-100.0); Mean Platelet Volume 8.6 fL (7.0-11.0); Mono # (Auto) 1.2 th/mm3 (0.0-0.9); Mono % (Auto) 14.1 % (0.0-8.0); Neut # (Auto) 4.1 th/mm3 (1.8-7.7); Neut % (Auto) 46.1 % (16.0-70.0); Platelet Count 205 th/mm3 (150-450); Red Blood Count 5.07 mil/mm3 (4.50-5.90); Red Cell Distribution Width 13.2 % (11.6-17.2); White Blood Count 8.8 th/mm3 (4.0-11.0)
[2018-08-03 01:05] LABS: Alanine Aminotransferase 32 U/L (12-78); Albumin 3.4 g/dL (3.4-5.0); Anion Gap 7 meq/L (5-15); Aspartate Aminotransferase 16 U/L (15-37); Blood Urea Nitrogen 14 mg/dL (7-18); Calcium 8.7 mg/dL (8.5-10.1); Chloride 109 meq/L (98-107); Glomerular Filtration Rate 77 mL/min (>89); Glucose,Random 153 mg/dL (74-106); Lipase 72 U/L (73-393); Sodium 141 meq/L (136-145)
[2018-08-03 01:09] LABS: Alkaline Phosphatase 116 U/L (45-117); Total Protein 6.7 g/dL (6.4-8.2); Troponin I 0.38 ng/mL (0.02-0.05)
[2018-08-03] MEDS ORDERED: Heparin 10,000 UNITS/10 ML Vial (for IV use) IV.PUSH STA (01:14)
[2018-08-03] MEDS ORDERED: Metoprolol Inj 5 MG/5 ML Vial IV.PUSH PRN (01:14)
[2018-08-03] MEDS ORDERED: Heparin Drip 25,000 UNIT/250 ML BAG IV.CONT PRN (01:14)
--- NOTE | 2018-08-03 01:29 | XR ---
EXAM DATE: 08/03/2018 12:29 AM EDT AGE/SEX: 63 years / Male INDICATIONS: Substernal and left side chest pressure. CLINICAL DATA: This is the patient's initial encounter. Patient reports that signs and symptoms have been present for 1 day and indicates a pain score of 1/10. MEDICAL/SURGICAL HISTORY: Hypertension. Coronary artery disease. CABG. COMPARISON: No prior exams available for comparison. FINDINGS: The cardiac silhouette is enlarged in transverse diameter. The lungs are free of acute parenchymal op acity. No effusions are identified. Median sternotomy wires are present. CONCLUSION Cardiomegaly. No acute pulmonary disease. Electronically signed by: Alex Crump MD 08/03/2018 1:28 AM EDT
[2018-08-03 02:23] LABS: Activated Partial Thrombo Time 22.2 sec (24.3-30.1); Prothrombin Time 10.1 sec (9.8-11.6)
--- NOTE | 2018-08-03 03:09 | P.HP ---
History of Present Illness Service: [facility] Primary Care Physician: No Primary Care Physician History of Present Illness: 63-year-old male with a past medical history significant for coronary artery disease status post CABG x5 presents to the emergency department for the evaluation of chest pain. The patient reports that yesterday morning after work he had a sharp chest pain followed by emesis. He denies any diaphoresis or shortness of breath. He reports that the chest pain continued intermittently all day and he had elevated blood pressures at home. He took a 325 mg aspirin and took a nap. He went to work earlier this evening and when he was walking down the woods his chest pain returned. He described it as a pressure at that time. He states that his nausea also returned. He denies any fever/chills. No abdominal pain. No lateralizing signs/symptoms. Inpatient Certification: I certify that the inpatient services were ordered in accordance with Medicare regulations governing the order. This includes certification that hospital inpatient services are reasonable and necessary and in the case of services not specified as inpatient-only under 42 CFR 419.22(n), that they are appropriately provided as inpatient services in accordance to with the 2-midnight benchmark under 43 CFR 412.3(e) Estimated Total Length of Stay (Days): 2 Plans for Post Hospital Care: Not yet determined Review of Systems All other systems reviewed negative except as stated in [facility] - History History Provided By: Patient - Medical History Medical History: Medical History (Last Reviewed 08/03/18 @ 03:05 by Mali Salazar MD) CAD (coronary artery disease) HTN (hypertension) - Surgical History Surgical History: Surgical History (Last Reviewed 08/03/18 @ 03:05 by Mali Salazar MD) History of hip surgery Hx of CABG - Family History Family History: Family History (Last Updated 08/03/18 @ 03:05 by Mali Salazar MD) Other Family history normal - Travel History Recent Travel in the [place] Within the Last 8 Weeks: No Recent Travel Out of the Country Within the Last 8 Weeks: No Medications and Allergies Active Medications: Active Medications Heparin Sodium/Dextrose (Heparin/D5w 25,000 U/250 Ml) 25,000 unit in 250 mls @ 0 mls/hr IV.CONT TITRATE PRN; Protocol PRN Reason: Per Protocol Last Admin: 08/03/18 02:49 Dose: 1,000 units/hr, 10 mls/hr Metoprolol Tartrate (Lopressor Inj) 5 mg IV.PUSH Q5M PRN PRN Reason: CHEST PAIN Last Admin: 08/03/18 02:00 Dose: 5 mg Sodium Chloride (Ns Flush) 2 ml IV.FLUSH UNSCH PRN PRN Reason: FLUSH AFTER USING IV ACCESS Last Admin: 08/03/18 00:56 Dose: 2 ml Allergies Allergy/AdvReac Type Severity Reaction Status Date / Time folic acid Allergy Mild Rash Verified 08/10/17 05:42 Exam Vital signs: Vital Signs 08/02/18 23:59 08/03/18 02:05 Temperature 98.5 F Pulse Rate 89 55 L Respiratory Rate 18 16 Blood Pressure 183/81 H 168/77 H Pulse Oximetry 97 97 Intake & Output 08/02/18 08/02/18 08/03/18 06:59 18:59 06:59 Weight 90.718 kg Narrative: Gen.: No acute distress Head: Normocephalic. Atraumatic. EENT: Pupils equal round and reactive to light. Nose without drainage. Airway intact. Throat without injection. Cardiovascular: Regular rate and rhythm. No murmurs, rubs or gallops. Respiratory: Lungs clear to auscultation bilaterally. No wheezes or rhonchi. Abdomen: Soft, nontender, nondistended. No peritoneal signs. Musculoskeletal: No gross deformities. No edema. Skin: No obvious rashes or erythema. Neuro: Sensory and motor grossly intact. Cranial nerves II through XII grossly intact. Results - Labs CBC & Chem 7: 08/03/18 00:30 08/03/18 00:30 Labs: Laboratory Results - last 24 hr 08/03/18 08/03/18 08/03/18 00:30 00:30 00:30 WBC 8.8 RBC 5.07 Hgb 14.8 Hct 43.9 MCV 86.7 MCH 29.2 MCHC 33.8 RDW 13.2 Plt Count 205 MPV 8.6 Neut % (Auto) 46.1 Lymph % (Auto) 34.2 [place] % (Auto) 14.1 H Eos % (Auto) 4.5 H Baso % (Auto) 1.1 Neut # (Auto) 4.1 Lymph # (Auto) 3.0 [place] # (Auto) 1.2 H Eos # (Auto) 0.4 Baso # (Auto) 0.1 WBC Differential . Differential Comment Auto diff final PT INR APTT Sodium 141 Potassium 4.0 Chloride 109 H Carbon Dioxide 25.0 Anion Gap 7 BUN 14 Creatinine 0.98 Estimated GFR 77 L Random Glucose 153 H Calcium 8.7 Total Bilirubin 0.4 AST 16 ALT 32 Alkaline Phosphatase 116 Troponin I 0.38 H B-Natriuretic Peptide 20 Total Protein 6.7 Albumin 3.4 Lipase 72 L 08/03/18 01:55 WBC RBC Hgb Hct MCV MCH MCHC RDW Plt Count MPV Neut % (Auto) Lymph % (Auto) [place] % (Auto) Eos % (Auto) Baso % (Auto) Neut # (Auto) Lymph # (Auto) [place] # (Auto) Eos # (Auto) Baso # (Auto) WBC Differential Differential Comment PT 10.1 INR 1.0 APTT 22.2 L Sodium Potassium Chloride Carbon Dioxide Anion Gap BUN Creatinine Estimated GFR Random Glucose Calcium Total Bilirubin AST ALT Alkaline Phosphatase Troponin I B-Natriuretic Peptide Total Protein Albumin Lipase Caprini VTE Risk Assessment Caprini VTE Risk Assessment: Moderate/High Risk (score >= 2) Caprini Risk Assessment Model: Point Value = 1 Point Value = 2 Point Value = 3 Point Value = 5 Age 41-60 Minor surgery BMI > 25 kg/m2 Swollen legs Varicose veins or History of unexplained or recurrent spontaneous Oral contraceptives or hormone replacement Sepsis (< 1 month) Serious lung disease, including pneumonia (< 1 month) Abnormal pulmonary function Acute myocardial infarction Congestive heart failure (< 1 month) History of inflammatory bowel disease Medical patient at bed rest Age 61-74 Arthroscopic surgery Major open surgery (> 45 min) Laparoscopic surgery (> 45 min) Malignancy Confined to bed (> 72 hours) Immobilizing plaster cast Central venous access Age >= 75 History of VTE Family history of VTE Factor V Leiden Prothrombin 27630C Lupus anticoagulant Anticardiolipin antibodies Elevated serum homocysteine Heparin-induced thrombocytopenia Other congenital or acquired thrombophilia Stroke (< 1 month) Elective arthroplasty Hip, pelvis, or leg fracture Acute spinal cord injury (< 1 month) Prophylaxis Regimen: Total Risk Factor Score Risk Level Prophylaxis Regimen 0-1 Low Early ambulation 2 Moderate Order ONE of the following: *Sequential Compression Device (SCD) *Heparin 5000 units SQ BID 3-4 Higher Order ONE of the following medications: *Heparin 5000 units SQ TID *Enoxaparin/Lovenox 40 mg SQ daily (WT < 150 kg, CrCl > 30 mL/min) *Enoxaparin/Lovenox 30 mg SQ daily (WT < 150 kg, CrCl > 10-29 mL/min) *Enoxaparin/Lovenox 30 mg SQ BID (WT < 150 kg, CrCl > 30 mL/min) AND/OR *Sequential Compression Device (SCD) 5 or more Highest Order ONE of the following medications: *Heparin 5000 units SQ TID (Preferred with Epidurals) *Enoxaparin/Lovenox 40 mg SQ daily (WT < 150 kg, CrCl > 30 mL/min) *Enoxaparin/Lovenox 30 mg SQ daily (WT < 150 kg, CrCl > 10-29 mL/min) *Enoxaparin/Lovenox 30 mg SQ BID (WT < 150 kg, CrCl > 30 mL/min) AND *Sequential Compression Device (SCD) Assessment and Plan - Plan Assessment/plan: 1. NSTEMI EKG without ST segment elevation or depression, personally reviewed Troponin 0.38 Serial troponins/EKGs Heparin bolus and drip Cardiology consulted, appreciate assistance FEN N.p.o. Electrolytes: Monitor and replete as needed
[2018-08-03 10:08] LABS: Hematocrit 40.5 % (39.0-51.0); Hemoglobin 14.3 gm/dL (13.0-17.0); Mean Corpuscular HGB Conc 35.3 % (32.0-36.0); Mean Corpuscular Hemoglobin 30.1 pg (27.0-34.0); Mean Corpuscular Volume 85.3 fL (80.0-100.0); Mean Platelet Volume 8.9 fL (7.0-11.0); Platelet Count 185 th/mm3 (150-450); Red Blood Count 4.75 mil/mm3 (4.50-5.90); Red Cell Distribution Width 13.2 % (11.6-17.2); White Blood Count 7.7 th/mm3 (4.0-11.0)
[2018-08-03 10:45] LABS: Troponin I 0.47 ng/mL (0.02-0.05)
[2018-08-03] MEDS ORDERED: Heparin 10,000 UNITS/10 ML Vial (for IV use) ONE ×2 (12:07→19:17)
--- NOTE | 2018-08-03 13:44 | ECG ---
Date Performed: 08/03/2018 Time Performed: 09:51:44 PTAGE: 63 years EKG: Sinus rhythm . PREVIOUS TRACING : 08/03/2018 01.36 DOCTOR: Elda Ramirez M.D. Interpretating Date/Time 08/03/2018 13:42:37
[2018-08-03 14:10] LABS: Troponin I 0.41 ng/mL (0.02-0.05)
[2018-08-03] MEDS ORDERED: Iohexol 350 MG/ML 50 ML Vial (for Cath Lab) IVCONTRAST ONE (18:10)
[2018-08-03] MEDS ORDERED: Iohexol 350 MG/ML 100 ML Vial (for Cath Lab) IVCONTRAST ONE (18:10)
[2018-08-03] MEDS ORDERED: fentaNYL Citrate Inj 100 MCG/2 ML Ampul ONE (18:20)
--- NOTE | 2018-08-03 18:29 | ECG ---
Date Performed: 08/03/2018 Time Performed: 00:43:22 PTAGE: 63 years EKG: Sinus rhythm POSSIBLE INFERIOR MYOCARDIAL INFARCTION BORDERLINE ECG PREVIOUS TRACING : 08/02/2017 12.25 Since the previous tracing, no significant change noted DOCTOR: William Morataya Interpretating Date/Time 08/03/2018 18:27:09
--- NOTE | 2018-08-03 18:29 | ECG ---
Date Performed: 08/03/2018 Time Performed: 01:36:07 PTAGE: 63 years EKG: Sinus rhythm WITH SINUS ARRHYTHMIA POSSIBLE INFERIOR MYOCARDIAL INFARCTION BORDERLINE ECG PREVIOUS TRACING : 08/03/2018 00.43 Since the previous tracing, no significant change noted DOCTOR: William Morataya Interpretating Date/Time 08/03/2018 18:27:33
[2018-08-03] MEDS ORDERED: Heparin 10,000 UNITS/10 ML Vial (for IV use) IV.PUSH PRN ×2 (18:30)
--- NOTE | 2018-08-03 20:22 | CATHPROC ---
? HIS Report Study Information Study Number Admission Scheduled Start Study Start [id number] Aug 03 2018 2:00AM 08/03/2018 Aug 03 2018 6:16PM [facility] Cardiac Catheterization Admit Source Facility Department Other [facility] - [facility] Wellness Coordinator Physician and Clinical Staff Initial Jose Enrique Grace Street Light Lamp Cleaner Adiel Rocha,YOVANA Street Light Lamp Cleaner Joe Quiñonez,RN Recorder Ramon Ga,RT(R) Scrub Radha Velazquez,RT(R) Procedures Performed Procedure Location (Site) Vessel Name Angiogram LV LV Ventricle Coronary Angiograms LCA Left Coronary Coronary Angiograms RCA Right Coronary Coronary Angiograms SVG-OM CIRC Coronary Angiograms BOCANEGRA BOCANEGRA Coronary Angiograms YAA Drug Eluting Inflatio SVG-OM CIRC L Heart Cath PTCA SVG-OM CIRC Wire insertion Fem Art (right) Femoral Art Equipment Time Ibm Websphere Commerce Developer Description Size Mfg Part Number Used/Scraped WIRE, BALANCE MIDDLEWEIGHT [id number] 19:21 [employer] 190CM Used 190CM *[id number] TRANSDUCER, TRUWAVE [id number] 18:18 DAS BRADY * Used W/STOCKCOCK *[id number] INTRODUCER SET, 18:18 [employer] FR 5 [id number] *[id number] Used MICROPUNCTURE STIFF [phone] *[id number] [id number] *[id number] 534-520T *[id number] *[id number] [id number] *[id number] 534-550S *[id number] 20:05 DAIG/ST. EULOGIO MEDICAL ANGIOSEAL, FR6 VIP FR 6 Used *[id number] ENDOVASCULAR WIRE, SPIDERFX 4.0 X [id number] 19:19 40 X 320CM Used COMPANY 320/190CM *[id number] 18:18 [employer] BLANKET,WARM AIR CCL * Used *[id number] 18:18 [employer] PACK, CCL CUSTOM * Used *[id number] 19:34 MEDTRONIC BALLOON, 2.0 X 12MM EUPHORA 12MM Used *[id number] BALLOON, 3.25 X 12MM NC [id number] 19:55 MEDTRONIC 12MM Used EUPHORA *[id number] 19:43 MEDTRONIC STENT, 3.0 15MM LUCRETIA 3.0 15MM Used *[id number] 19:34 DoctorC MEDICAL 30 CHILO INDEFLATOR Used *[id number] 18:18 DoctorC MEDICAL WIRE, 3MMJ .035 180CM 180CM Used *[id number] 18:18 NAMIC MANIFOLD, 4 PORT * Used *[id number] 18:18 NYCOMED OMNIPAQUE, 350 MG, 150ML 150ML [id number] Used 19:23 NYCOMED OMNIPAQUE, 350 MG, 150ML 150ML [id number] Used 19:11 NYCOMED OMNIPAQUE, 350 MG, 50ML 50ML [id number] Used [id number] 18:18 TERUMO MEDICAL SHEATH, FR5 TERUMO (10CM) FR 5 Used *[id number] 19:17 TERUMO MEDICAL SHEATH, FR6 TERUMO (10CM) FR 6 Used *[id number] Equipment Model, Serial, Lot Number and Expiration Data Description Model Number Serial Number Lot Number Expiration Date ANGIOSEAL, FR6 [facility] [id number] 03-17-2019 STENT, 3.0 15MM LUCRETIA [id number] 02-17-2020 WIRE, SPIDERFX 4.0 X 320/190CM [id number] 06-30-2020 History: Current Medications Medication Dosage/Unit Route Frequency Last Date/Time Taken ASA NTG Patch History: Allergies Allergy Reaction No Known Allergies folic acid Rash History: Risk Factors Family History of Hypertension Dyslipidemia Previous MS Previous Heart Failure Premature CAD Yes Yes No No No Prior Valve Prior PCI Prior CABG Prior CABGDate Surgery No No Yes 10/18/2009 Cerebrovascular Peripheral Artery Chronic Lung On Dialysis Diabetes Disease Disease Disease No No No No No History: Risk Factors Selection Items Current Smoker History: CV Disease Selection Items Known CAD History: Stress Tests Stress or Imaging Studies Performed No History: Other Disease Selection Items CAD HTN History: Other Current Smoker Method Packs a Day Years Used Pack Years Yes Cigarettes 1 50 50 Labs Hgb (g/dl) Hct (%) WBC (l/cumm) Platelets (thousands) 11.60-17.00 35.00-51.00 4.00-11.00 150.00-450.00 14.8 43.9 8.8 205 Glucose (mg/dl) BUN (mg/dl) Creatinine (mg/dl) BUN:Creatinine (1:x) 74.00-106.00 7.00-18.00 0.50-1.30 10.00-20.00 153 14 0.9 15.6 Na (meq/l) K (meq/l) 136.00-145.00 3.50-5.10 141 4 INR (PTT:PT) 0.90-1.10 1 Troponin I (ng/ml) CPK-MB (ng/ML) 0.02-0.05 0.50-3.60 0.3 Not Drawn Medication Medication Total Dose (Bolus/Oral) Medication Total Dosage/Unit 1% XYLOCAINE 20 mL FENTANYL 50 mcg HEPARIN 7400 units NTG (IC) 200 mcg PLAVIX 600 mg VERSED 1 mg Medications (Bolus/Oral) Medication Time Given Dosage/Unit Administered By Reason VERSED 08/03/2018 6:38:18 PM 1 mg Joe Quiñonez 1 mg VERSED given by Joe Quiñonez RN via Peripheral IV. FENTANYL 08/03/2018 6:38:30 PM 50 mcg Joe Quiñonez 50 mcg FENTANYL given by Joe Quiñonez RN via Peripheral IV. 1% XYLOCAINE 08/03/2018 6:39:15 PM 20 mL Jose Enrique De La Torre 20 mL 1% XYLOCAINE given in lab by Jose Enrique De La Torre in Right Groin via Subcutaneous. HEPARIN 08/03/2018 7:19:21 PM 6400 units Joe Quiñonez 6400 units HEPARIN given in lab by Joe Quiñonez RN in Right Antecubital via Peripheral IV. HEPARIN 08/03/2018 7:34:45 PM 1000 units oJe Quiñonez 1000 units HEPARIN given in lab by Joe Quiñonez RN via Peripheral IV. NTG (IC) 08/03/2018 7:58:00 PM 200 mcg Jose Enrique De La Torre 200 mcg NTG (IC) given in lab by Jose Enrique De La Torre via Intra-coronary. PLAVIX 08/03/2018 8:08:30 PM 600 mg Joe Quiñonez 600 mg PLAVIX given in lab by Joe Quiñonez RN via Oral. Initial Case Assessment Cardiovascular HR Rhythm NIBP Chest Pain 63 Sinus 146/65 0 Edema Present Skin color Skin None Normal Warm Dry Circulatory - Right Pulses Dorsalis Pedis Femoral 2 1 Scale (0,1,2,3,4,d) Circulatory - Left Pulses Dorsalis Pedis Femoral 2 1 Scale (0,1,2,3,4,d) Neurological State Oriented to time-place- Alert Moves all extremities person Respiration - General Respiration Rate SpO2 (%) O2 (lpm) (B/min) 17 95 0 Final Case Assessment Cardiovascular HR Rhythm NIBP Chest Pain 60 Sinus 137/77 0 Edema Present Skin color Skin None Normal Warm Dry Circulatory - Right Pulses Dorsalis Pedis Femoral 2 1 Scale (0,1,2,3,4,d) Circulatory - Left Pulses Dorsalis Pedis Femoral 2 1 Scale (0,1,2,3,4,d) Neurological State Oriented to time-place- Alert Moves all extremities person Respiration - General Respiration Rate SpO2 (%) O2 (lpm) (B/min) 14 99 0 Chronological Log Time Study Chronological Log 18:10:00 Patient arrived via Bed. 18:10:00 Patient Name, D.O.B, / Armband Verified By R.N. Vitals capture started with the following parameters, Patient=Adult, Interval=5 min, Initial Pr xposnu=480 mmHg, 18:18:41 Deflation Rate=5 mmHg, Cuff placed on Left Arm 18:18:55 Patient has been NPO for More than 6Hrs. 18:18:57 Skin Breakdown-none per pt 18:19:05 Patient Warmer Placed on the Table. 18:19:07 Oriana Prominences Protected Assessment: Initial Case, HR=63 BPM, Rhythm=Sinus, WBQY=991/65 mmhg, Chest Pain=0, Edema=None, Color=Normal, Skin = Warm, Dry Right Pulses: Saul Ped=2, Femoral=1 18:19:14 Left Pulses: Saul Ped=2, Femoral=1 Neurological: State=Alert, Ox3, DE LEON Respiration: Resp=17 B/min, SpO2=95 %, O2=0 lpm 18:19:58 HR=63 bpm, HBNX=693/65 mmhg, SpO2=95.0 %, Resp=17 B/min, Pain=0, Sanket=10, Virk=2 18:21:24 HR=64 bpm, VDID=157/78 mmhg, SpO2=95.0 %, Resp=13 B/min, Pain=0, Sanket=10, Virk=2 18:23:23 HR=66 bpm, AIAG=924/75 mmhg, SpO2=95.0 %, Resp=10 B/min, Pain=0, Sanket=10, Virk=2 18:25:24 HR=62 bpm, BNOP=787/76 mmhg, SpO2=95.0 %, Resp=17 B/min, Pain=0, Sanket=10, Virk=2 18:27:27 HR=63 bpm, FWQB=900/70 mmhg, SpO2=95.0 %, Resp=18 B/min, Pain=0, Sanket=10, Virk=2 18:29:26 HR=61 bpm, XJQH=059/76 mmhg, SpO2=95.0 %, Resp=16 B/min, Pain=0, Sanket=10, Virk=2 18:31:28 HR=63 bpm, LYYA=852/72 mmhg, SpO2=94.0 %, Resp=15 B/min, Pain=0, Sanket=10, Virk=2 18:32:53 Pressure channel 2 zeroed. 18:33:25 HR=62 bpm, BTWS=795/74 mmhg, SpO2=94.0 %, Resp=12 B/min, Pain=0, Sanket=10, Virk=2 18:33:34 Bilateral groins prepped with 2% chlorhexidine, and draped after a 3 minute waiting time. 18:34:21 PIV #20 Right AC with NS at KVO site WNL 18:35:28 HR=61 bpm, EAIU=991/66 mmhg, SpO2=93.0 %, Resp=16 B/min, Pain=0, Sanket=10, Virk=2 18:37:27 HR=63 bpm, QIJX=076/67 mmhg, SpO2=93.0 %, Resp=20 B/min, Pain=0, Sanket=10, Virk=2 Time Out. Correct patient, correct procedure, correct physician, labs, allergies, and equipment verified with laboratory miller 18:38:11 team present. Fire risk assesment completed (see hard stop sheet for coding). Time Out Conc urred by MD and individual staff in procedure. 18:38:18 1 mg VERSED given by Joe Quiñonez RN via Peripheral IV. 18:38:30 50 mcg FENTANYL given by Olamide, Joe, RN via Peripheral IV. 18:38:38 Case Start 18:39:15 20 mL 1% XYLOCAINE given in lab by Jose Enrique De La Torre in Right Groin via Subcutaneous. 18:39:28 HR=61 bpm, OBLL=868/74 mmhg, SpO2=95.0 %, Resp=18 B/min, Pain=0, Sanket=10, Virk=2 18:39:54 Reference ECG taken 18:41:20 HR=63 bpm, VUGR=643/72 mmhg, SpO2=95.0 %, Resp=17 B/min, Pain=0, Sanket=10, Virk=2 18:42:33 A SHEATH, FR5 TERUMO (10CM) FR 5 was advanced into the Fem Art (right) using the Percutaneo us technique. 18:43:23 An injection in the Fem Art (right) was made through the SHEATH, FR5 TERUMO (10CM) FR 5. 18:43:56 HR=67 bpm, DPQV=776/71 mmhg, SpO2=93.0 %, Resp=17 B/min, Pain=0, Sanket=10, Virk=2 A JR 4.0 INFINITI CATHETER FR 5 was advanced over a wire. OMNIPAQUE, 350 MG, 150ML 150ML was us ed for 18:44:22 injections. 18:45:24 HR=66 bpm, VDBJ=295/73 mmhg, SpO2=95.0 %, Resp=11 B/min, Pain=0, Sanket=10, Virk=2 Recorded Pressure: LV, HR=70, Condition=Condition 1 18:45:34 (Left Ventricle) LV 134/4/16 Recorded Pressure: LV, Ao, HR=65, Condition=Condition 1 18:45:53 (Left Ventricle) LV 130/3/14, (Aorta) Ao 126/59/85 18:46:55 The RCA was injected and visualized at various angles. OMNIPAQUE, 350 MG, 150ML 150ML used . Recorded Pressure: Ao, HR=64, Condition=Condition 1 18:47:12 (Aorta) Ao 126/61/88 18:47:25 HR=63 bpm, ZAWX=456/76 mmhg, SpO2=92.0 %, Resp=18 B/min, Pain=0, Sanket=10, Virk=2 18:48:42 Vitals capture stopped. Vitals capture started with the following parameters, Patient=Adult, Interval=5 min, Initial Pr pgyiis=435 mmHg, 18:48:54 Deflation Rate=5 mmHg, Cuff placed on Left Arm 18:49:40 HR=63 bpm, XZAD=212/74 mmhg, SpO2=92.0 %, Resp=14 B/min, Pain=0, Sanket=10, Virk=2 18:53:33 The YAA was injected and visualized at various angles. OMNIPAQUE, 350 MG, 150ML 150ML used . 18:54:37 HR=67 bpm, IZUS=942/66 mmhg, SpO2=94.0 %, Resp=18 B/min, Pain=0, Sanket=10, Virk=2 18:56:03 The BOCANEGRA was injected and visualized at various angles. OMNIPAQUE, 350 MG, 150ML 150ML used . After removing the current catheter a JL 4.0 INFINITI CATHETER FR 5 was advanced over a WIRE, 3 MMJ .035 180CM 18:56:36 180CM. 18:59:19 The LCA was injected and visualized at various angles. OMNIPAQUE, 350 MG, 150ML 150ML used . 18:59:36 HR=69 bpm, RMSR=132/69 mmhg, SpO2=94.0 %, Resp=12 B/min, Pain=0, Sanket=10, Virk=2 After removing the current catheter a AL 1 INFINITI CATHETER FR 5 was advanced over a WIRE, 3MM J .035 180CM 19:00:10 180CM. 19:04:09 After removing the current catheter a catheter was advanced over a WIRE, 3MMJ .035 180CM 18 0CM. 19:04:35 HR=67 bpm, ASHE=677/70 mmhg, SpO2=93.0 %, Resp=9 B/min, Pain=0, Sanket=10, Virk=2 19:09:07 The LV was injected at 20 cc/sec for a total of 40. OMNIPAQUE, 350 MG, 50ML 50ML used. 19:09:40 HR=71 bpm, FAQG=645/65 mmhg, SpO2=94.0 %, Resp=24 B/min, Pain=0, Sanket=10, Virk=2 After removing the current catheter a JR 4.0 INFINITI CATHETER FR 5 was advanced over a WIRE, 3 MMJ .035 180CM 19:11:14 180CM. 19:14:41 HR=63 bpm, HOWQ=474/65 mmhg, SpO2=94.0 %, Resp=27 B/min, Pain=0, Sanket=10, Virk=2 19:15:56 The SVG-OM was injected and visualized at various angles. OMNIPAQUE, 350 MG, 150ML 150ML us ed. 19:17:46 A WIRE, 3MMJ .035 180CM 180CM was inserted via Fem Art (right). 19:17:50 Catheter was removed A SHEATH, FR6 TERUMO (10CM) FR 6 was exchanged in the Fem Art (right). This was necessary in or mary to 19:18:47 accomodate a larger catheter. 19:19:21 6400 units HEPARIN given in lab by Joe Quiñonez RN in Right Antecubital via Peripheral IV. 19:19:36 HR=63 bpm, UIYY=106/73 mmhg, SpO2=96.0 %, Resp=7 B/min, Pain=0, Sanket=10, Virk=2 A AL .75 GUIDE CATHETER FR 6 was advanced over a wire. OMNIPAQUE, 350 MG, 150ML 150ML was used for 19:20:16 injections. 19:24:42 HR=64 bpm, OAIA=163/70 mmhg, SpO2=94.0 %, Resp=15 B/min, Pain=0, Sanket=10, Virk=2 After removing the current catheter a JR 4.0 GUIDE CATHETER FR 6 was advanced over a WIRE, 3MMJ .035 180CM 19:27:03 180CM. 19:29:19 Activated Clotting Time Drawn 19:29:38 HR=64 bpm, CZPF=033/66 mmhg, SpO2=95.0 %, Resp=19 B/min, Pain=0, Sanket=10, Virk=2 19:31:22 A WIRE, BALANCE MIDDLEWEIGHT 190CM 190CM was inserted via Fem Art (right). 19:32:01 Interventional wire has crossed the lesion A BALLOON, 2.0 X 12MM EUPHORA 12MM was inserted over WIRE, BALANCE MIDDLEWEIGHT 190CM 190CM via the 19:32:46 SVG-OM. A BALLOON, 2.0 X 12MM EUPHORA 12MM over a WIRE, BALANCE MIDDLEWEIGHT 190CM 190CM in the SVG-OM was 19:33:39 inflated using a 30 CHILO INDEFLATOR at 8 chilo for 10 sec. 19:34:19 ACT (Normal Range 90-180) = 265 19:34:40 HR=65 bpm, ACIW=503/73 mmhg, SpO2=95.0 %, Resp=17 B/min, Pain=0, Sanket=10, Virk=2 19:34:45 1000 units HEPARIN given in lab by Joe Quiñonez RN via Peripheral IV. 19:35:38 Filter wire sheath inserted 19:36:55 Wire removed 19:37:50 Filter wire sheath removed. 19:39:41 HR=66 bpm, RRUJ=028/72 mmhg, SpO2=95.0 %, Resp=17 B/min, Pain=0, Sanket=10, Virk=2 A STENT, 3.0 15MM LUCRETIA 3.0 15MM was advanced through a JR 4.0 GUIDE CATHETER FR 6 over a WIRE, SPIDERFX 19:42:47 4.0 X 320/190CM 40 X 320CM. 19:44:18 Stent not deployed. Stent removed and intact. 19:44:40 HR=63 bpm, DIXM=285/76 mmhg, SpO2=95.0 %, Resp=19 B/min, Pain=0, Sanket=10, Virk=2 19:45:04 Filter wire sheath inserted 19:47:01 Spider wire advanced. 19:47:19 Filter wire sheath removed. A STENT, 3.0 15MM LUCRETIA 3.0 15MM was advanced through a JR 4.0 GUIDE CATHETER FR 6 over a WIRE, SPIDERFX 19:48:45 4.0 X 320/190CM 40 X 320CM. 19:49:43 HR=65 bpm, EDWF=945/79 mmhg, SpO2=97.0 %, Resp=14 B/min, Pain=0, Sanket=10, Virk=2 A STENT, 3.0 15MM LUCRETIA 3.0 15MM was deployed using a 30 CHILO INDEFLATOR at 14 atmospheres for 20 seconds in 19:51:31 the SVG-OM. 19:52:08 Delivery device removed A BALLOON, 3.25 X 12MM NC EUPHORA 12MM was inserted over WIRE, SPIDERFX 4.0 X 320/190CM 40 X 32 0CM via 19:53:18 the SVG-OM. 19:54:44 HR=62 bpm, PGHA=437/74 mmhg, SpO2=94.0 %, Resp=14 B/min, Pain=0, Sanket=10, Virk=2 A BALLOON, 3.25 X 12MM NC EUPHORA 12MM over a WIRE, SPIDERFX 4.0 X 320/190CM 40 X 320CM in the SVG-OM 19:55:48 was inflated using a 30 CHILO INDEFLATOR at 12 chilo for 12 sec. A BALLOON, 3.25 X 12MM NC EUPHORA 12MM over a WIRE, SPIDERFX 4.0 X 320/190CM 40 X 320CM in the SVG-OM 19:56:16 was inflated using a 30 CHILO INDEFLATOR at 12 chilo for 12 sec. A BALLOON, 3.25 X 12MM NC EUPHORA 12MM over a WIRE, SPIDERFX 4.0 X 320/190CM 40 X 320CM in the SVG-OM 19:56:26 was inflated using a 30 CHILO INDEFLATOR at 14 chilo for 10 sec. 19:57:36 Balloon Removed. 19:58:00 200 mcg NTG (IC) given in lab by Jose Enrique De La Torre via Intra-coronary. 19:59:25 Filter wire sheath inserted 19:59:47 HR=67 bpm, SEYE=697/70 mmhg, SpO2=94.0 %, Resp=6 B/min, Pain=0, Sanket=10, Virk=2 19:59:57 Filter wire and sheath removed. 20:01:12 The SVG-OM was injected and visualized at various angles. OMNIPAQUE, 350 MG, 150ML 150ML us ed. 20:02:52 A WIRE, 3MMJ .035 180CM 180CM was inserted via Fem Art (right). 20:03:00 Catheter was removed 20:04:12 An injection in the Fem Art (right) was made through the SHEATH, FR6 TERUMO (10CM) FR 6. 20:04:42 HR=72 bpm, NLPE=690/77 mmhg, SpO2=94.0 %, Resp=17 B/min, Pain=0, Sanket=10, Virk=2 20:06:40 ANGIOSEAL, FR6 VIP FR 6 placement in the Fem Art (right) 20:07:29 Case End (Physician broke scrub) Assessment: Final Case, HR=60 BPM, Rhythm=Sinus, CLYX=966/77 mmhg, Chest Pain=0, Edema=None, Color=Normal, Skin = Warm, Dry Right Pulses: Saul Ped=2, Femoral=1 20:07:38 Left Pulses: Saul Ped=2, Femoral=1 Neurological: State=Alert, Ox3, DE LEON Respiration: Resp=14 B/min, SpO2=99 %, O2=0 lpm 20:08:30 600 mg PLAVIX given in lab by Joe Quiñonez RN via Oral. 20:10:15 Sterile dressing applied to site 20:10:16 No case complications noted. 20:10:20 Cine recording checked. 20:10:28 HR=57 bpm, DEEA=974/80 mmhg, SpO2=97.0 %, Resp=14 B/min, Pain=0, Sanket=10, Virk=2 20:11:05 Bedside Report will be given. 20:11:11 Implantable Device card placed in patient's chart. 20:11:24 A Left Heart Cath was performed. 20:16:35 Patient moved to [facility] End Study - Contrast Media Used In Study Contrast Total Opened (mL) Total Used (mL) Total Wasted (mL) Omnipaque 350 245 105 End Study - Maximum Contrast Load Max Contrast Load (mL) 508.3 End Study - Radiation Exposure Fluoro Time (minutes) 29.2 End Study - Patient Disposition Complications Transferred To Interventional Outcome No Telemetry Bed successful
[2018-08-03] MEDS ORDERED: Misc Info for Pharmacy OTHER STA (20:24)
[2018-08-03] MEDS: Metoprolol Tartrate 25 MG Tablet PO SCH (20:59)
--- NOTE | 2018-08-04 00:21 | MB ---
cc: oJse Enrique De La Torre DO DATE: 08/03/2018 REASON FOR CONSULTATION: Elevated troponin. HISTORY OF PRESENT ILLNESS: Kartik Teresa is a pleasant 63-year-old male who presented to [facility] Emergency Room due to chest pain. He states that he woke up the day before after work and had sharp chest pain followed by vomiting. He denies any diaphoresis or shortness of breath. Chest pain continued intermittently all day. He took a 325 mg of aspirin and took a nap. He went to work earlier yesterday evening, and when he was walking down the woods, the chest pain returned. At that time, it felt more like a pressure, and the nausea returned, so he presented to the emergency room. He was found to have an elevated troponin. In seeing him, he is currently hemodynamically stable without chest pain or shortness of breath. PAST MEDICAL HISTORY: 1. Coronary artery disease. 2. Hypertension. 3. Tobacco abuse. PAST SURGICAL HISTORY: 1. Left hip surgery. 2. CABG x5 (done at an outside hospital in [place] with unknown anatomy). ALLERGIES: FOLIC ACID. MEDICATIONS: Denies. He decided that he will just stop all medications at some point in the distant past. FAMILY HISTORY: He denies premature coronary artery disease or sudden cardiac within the family. SOCIAL HISTORY: The patient smokes a few cigarettes a day. He denies alcohol or drug abuse. REVIEW OF SYSTEMS: Fourteen systems were reviewed including osteopathic. Pertinent positives and negatives above, otherwise negative. PHYSICAL EXAMINATION: VITAL SIGNS: Temperature 98.1, heart rate 72, blood pressure 140/81, respirations 20, pulse oximetry 92% on room air. GENERAL: The patient appears well, in no acute distress. Alert, awake, and oriented x3. HEENT: Extraocular muscles intact. Mucous membranes moist. NECK: Supple. No JVD at 45 degrees. No carotid bruits heard bilaterally. Carotid upstroke is brisk in nature. HEART: Regular rate and rhythm. Positive first and second heart sounds, and there are no murmurs, gallops, or rubs. LUNGS: Clear to auscultation bilaterally. No wheezes, rales, or rhonchi. ABDOMEN: Soft, nontender, nondistended. No organomegaly noted. EXTREMITIES: No clubbing, cyanosis, or edema. Femoral and distal pulses are intact bilaterally. NEUROLOGIC: No focal deficits. SKIN: Warm, dry, and intact. Previous sternotomy scar is intact, clean, and dry. OSTEOPATHIC: No kyphoscoliosis, lordosis, or paraspinal tender points. LABORATORY DATA: Hemoglobin 14.3, hematocrit 40.5, platelets 185. Potassium 4.0, BUN 14, creatinine 0.98. Troponin 0.47. Electrocardiogram (08/03/2018 at 0951): Sinus rhythm, nonspecific ST-T wave changes. IMPRESSION: 1. Chest pain concerning for coronary insufficiency. 2. Rin-KT-oacumyghz myocardial infarction. 3. Coronary artery disease with a history of coronary artery bypass graft x5 with unknown anatomy. 4. Hypertension. 5. Tobacco abuse. RECOMMENDATIONS: 1. Mr. Teresa presented with chest pain concerning for coronary insufficiency as well as an elevated troponin. 2. Because of this, we recommended cardiac catheterization. Risks, benefits, and alternatives were explained to him, and he consented as such. 3. He will be n.p.o. this morning and go later this afternoon for cardiac catheterization. 4. He has been placed on a heparin drip, and this will be held before catheterization. 5. We will check a 2-D echo to look at his overall left ventricular function, cardiac structure, and possible valvulopathies. 6. I spoke to him for greater than 3 minutes about tobacco cessation. Thank you for allowing me to see Kartik Teresa. If there are any questions, please do not hesitate to call. DO KENNETH Cruz/deangelo , 11:16 PM , 11:27 PM
--- NOTE | 2018-08-04 00:32 | MA ---
cc: Jose Enrique De La Torre DO DATE: 08/03/2018 PROCEDURE: Left heart catheterization, coronary angiogram, bypass angiogram, aortogram, monitored sedation 90 minutes, complex case. Ponce drug-eluting stent (3 x 15) placed to the saphenous vein graft to the obtuse marginal. Spider filter protection distally. PREPROCEDURE DIAGNOSES: Chest pain concerning for coronary insufficiency, nxi-KB-boffeouaq myocardial infarction. POSTPROCEDURE DIAGNOSES: Cly-XI-nocnecxtr myocardial infarction, status post Ponce drug-eluting stent (3 x 15) to the saphenous vein graft to the obtuse marginal, history of CABG x5 (2/5 grafts patent). MEDICATIONS: Versed 1 mg, fentanyl 50 mcg, heparin 7400 units, Plavix 600 mg. CONTRAST USED: 245 mL FLUOROSCOPY: 29.2 minutes. MODERATE SEDATION: 90 minutes. FRAILTY SCORE:. 3 ESTIMATED BLOOD LOSS: 10 mL PROCEDURAL SUMMARY: Kartik Teresa is a pleasant 63-year-old male who presented to [facility] Emergency Room due to chest pain. He was found to have an elevated troponin. Because of this, he was recommended cardiac catheterization. Risks, benefits, and alternatives were explained to him, and he consented to such. He was brought to the lab and prepped in the usual sterile fashion. The right femoral artery was accessed using a modified Seldinger technique and placement of a 5-Portuguese sheath. This was easily aspirated and flushed. A JR4 was advanced over a J-wire to the ascending aorta and across the aortic valve for measurement of left ventricular pressure. This was pulled back across the aortic valve showing a significant gradient of aortic stenosis. JR4 was used to free up the right coronary artery system. I was unable to cannulate any of the grafts with the JR4 and so because we had no idea where his grafts are previously, this was taken into the right brachiocephalic, and a nonselective shot of the BOCANEGRA was done which was not used during his bypass. JR4 was then engaged into the BOCANEGRA, and this was used for selective angiography of the BOCANEGRA to LAD. This was exchanged out for a JL4, which was used for selective angiography of the left coronary artery system. I attempted to use an AL1 to find any of the saphenous vein grafts, but was unable to. A pigtail was then placed in the aorta, and an aortogram was done showing only one graft patent from the aorta as well as an aortic aneurysm. Pigtail was exchanged for a JR4, which was used for selective angiography of the saphenous vein graft to the obtuse marginal. Please see notes below for intervention. FINDINGS: Left main: Normal-sized vessel with adequate reflux. It bifurcates into an LAD and circumflex. LAD: 20%-30% disease in the proximal portion. Mid portion is 100% occluded. It does give off one diagonal which is overall small, but no significant disease. Left circumflex: Moderate-size vessel with mild luminal irregularities. It appears that there are multiple obtuse marginals occluded. RCA: 100% occluded in the mid portion. There is minimal flow to the distal vessel, which looks like an overall small vessel. BOCANEGRA to LAD is patent and supplies both antegrade and retrograde. Distal portion of the BOCANEGRA supplies collaterals to a posterolateral branch filling the distal RCA. Saphenous vein graft to obtuse marginal has a 95% stenosis in the mid portion. This appears to fill 3 major obtuse marginals with part of the obtuse marginal most likely from another vein graft, occluded. Three other vein grafts appear to be occluded, one to a second obtuse marginal based on the anatomy. Otherwise, would assume one went to a diagonal and another to the PDA, but I am unsure at this time as we do not have his operative report. LVEDP 14. INTERVENTION: Due to the significance of disease in his saphenous vein graft as well as his elevated troponin, we proceeded with intervention of his vein graft to obtuse marginal. His 5-Portuguese sheath was exchanged out for a 6-Portuguese sheath. The patient was given heparin as an anticoagulant. I originally tried in AL 0.75 guide but was unable to engage the vessel, and so a JR4 guide was used. BMW wire was advanced into the distal obtuse marginal. A compliant balloon (2 x 12) was used to predilate the lesion to allow for filter to pass by. A Spider filter was placed in the distal obtuse marginal. BMW wire was removed. An Ponce drug-eluting stent (3 x 15) was placed over the lesion and inflated. This was postdilated with a noncompliant balloon (3.25 x 12). The wire was removed. Final angiogram shows a well-opposed stent with no perforations or dissections. Angio-Seal was used to close the arteriotomy site. The patient was given 600 mg of Plavix. He left the catheterization lab cardiovascularly stable. INTERVENTIONAL DATA: Vessel: Saphenous vein graft to obtuse marginal. Lesion length 12, pre-SURJIT 3, post-SURJIT 3, post-stenosis 0. IMPRESSION: 1. Chest pain concerning for coronary insufficiency. 2. Wjf-BZ-tiadayvws myocardial infarction. 3. Status post Ponce drug-eluting stent (3 x 15) to the mid saphenous vein graft to the obtuse marginal. 4. History of coronary artery bypass graft x5 (2/5 grafts patent). RECOMMENDATIONS: 1. Mr. Teresa underwent PCI as above and will be recommended aspirin indefinitely and Plavix for at least 12 months. 2. He will be placed on beta margaret, statin, and RIP inhibitor therapy. 3. We will check a 2-D echo to look at his overall left ventricular function, cardiac structure, and possible valvulopathies. 4. We will plan on him being in the hospital for 24-48 hours. If stable overnight and lab work is okay, consideration could be made for discharge tomorrow afternoon. Thank you for allowing me to see Kartik Teresa. If there are any questions, please do not hesitate to call. DO KENNETH Cruz/rm , 11:28 PM , 11:43 PM
[2018-08-04 04:49] LABS: Baso % (Auto) 0.2 % (0.0-2.0); Eos # (Auto) 0.2 th/mm3 (0.0-0.4); Eos % (Auto) 2.2 % (0.0-4.0); Hematocrit 43.2 % (39.0-51.0); Hemoglobin 14.8 gm/dL (13.0-17.0); Lymph # (Auto) 1.6 th/mm3 (1.0-4.8); Lymph % (Auto) 22.7 % (9.0-44.0); Mean Corpuscular HGB Conc 34.4 % (32.0-36.0); Mean Corpuscular Hemoglobin 29.7 pg (27.0-34.0); Mean Corpuscular Volume 86.2 fL (80.0-100.0); Mean Platelet Volume 8.8 fL (7.0-11.0); Mono # (Auto) 0.6 th/mm3 (0.0-0.9); Mono % (Auto) 8.9 % (0.0-8.0); Neut # (Auto) 4.7 th/mm3 (1.8-7.7); Platelet Count 190 th/mm3 (150-450); Red Blood Count 5.01 mil/mm3 (4.50-5.90); Red Cell Distribution Width 13.3 % (11.6-17.2); White Blood Count 7.1 th/mm3 (4.0-11.0)
[2018-08-04 05:16] LABS: Calcium 8.1 mg/dL (8.5-10.1); Carbon Dioxide 26.1 meq/L (21.0-32.0); Potassium 3.8 meq/L (3.5-5.1)
[2018-08-04] MEDS: Lisinopril 5 MG Tablet PO SCH (09:32)
[2018-08-04] MEDS: Metoprolol Tartrate 25 MG Tablet PO SCH ×2 (09:33→20:46)
--- NOTE | 2018-08-04 15:47 | ECHRPT ---
Indication: CORONARY ATHEROSCLEROSIS CONCLUSIONS Upper normal left ventricular size. Wall thickness is normal. No definite wall motion abnormalities . The left ventricular systolic function is low normal with an estimated ejection fraction of 50%. The estimated pulmonary arterial pressure is 23 mmHg. Trace tricuspid regurgitation. BP: / HR: Rhythm: MEASUREMENTS (Male / Female) Normal Values Technical Quality: 2D ECHO LV Diastolic Diameter PLAX 5.4 cm 4.2 - 5.9 / 3.9 - 5.3 cm LV Systolic Diameter PLAX 4.1 cm IVS Diastolic Thickness 1.0 cm 0.6 - 1.0 / 0.6 - 0.9 cm LVPW Diastolic Thickness 0.8 cm 0.6 - 1.0 / 0.6 - 0.9 cm LV Relative Wall Thickness 0.3 RV Internal Dim ED PLAX 1.9 cm LA Systolic Diameter LX 4.4 cm 3.0 - 4.0 / 2.7 - 3.8 cm M-MODE Aortic Root Diameter MM 3.0 cm AV Cusp Separation MM 1.8 cm DOPPLER Mitral E Point Velocity 82.9 cm/s Mitral A Point Velocity 89.3 cm/s Mitral E to A Ratio 0.9 TR Peak Velocity 182.0 cm/s TR Peak Gradient 13.2 mmHg Right Atrial Pressure 10.0 mmHg Pulmonary Artery Systolic Pressu 23.2 mmHg Right Ventricular Systolic Press 23.2 mmHg FINDINGS LEFT VENTRICLE Upper normal left ventricular size. Wall thickness is normal. No definite wall motion abnormalities . The left ventricular systolic function is low normal with an estimated ejection fraction of 50%. RIGHT VENTRICLE Normal right ventricular size and systolic function. LEFT ATRIUM The left atrial size is upper limits of normal. RIGHT ATRIUM The right atrial size is normal. ATRIAL SEPTUM Normal atrial septal thickness without atrial level shunting by limited color doppler interrogation. AORTA The aortic root and proximal ascending aorta are normal in size on limited imaging. MITRAL VALVE Structurally normal mitral valve. No mitral valve stenosis or regurgitation. AORTIC VALVE Trileaflet aortic valve. No aortic valve stenosis or regurgitation. TRICUSPID VALVE The estimated pulmonary arterial pressure is 23 mmHg. Trace tricuspid regurgitation. PULMONARY VALVE No pulmonary valve regurgitation or stenosis. VESSELS The inferior vena cava is normal in size. PERICARDIUM No pericardial effusion. Aleksander Ellison MD (Electronically Signed) Final Date:04 August 2018 15:46
--- NOTE | 2018-08-04 16:16 | P.PNIM ---
Subjective Interval history: Patient is requesting a dose of [place] today for exacerbation of left hip pain. He denies chest or shortness of breath. Physical Exam Vital signs: Vital Signs 08/03/18 17:00 08/03/18 18:00 08/03/18 20:00 Temperature Pulse Rate 64 62 69 Respiratory Rate 18 Blood Pressure 151/97 H Pulse Oximetry 94 L 08/03/18 21:00 08/03/18 21:08 08/03/18 22:00 Temperature Pulse Rate 68 56 L Respiratory Rate Blood Pressure Pulse Oximetry 96 08/03/18 23:00 08/04/18 00:00 08/04/18 01:00 Temperature 98.2 F Pulse Rate 77 84 84 Respiratory Rate 18 Blood Pressure 145/76 H Pulse Oximetry 94 L 08/04/18 02:00 08/04/18 03:00 08/04/18 04:00 Temperature 98.2 F Pulse Rate 84 62 54 L Respiratory Rate 18 Blood Pressure 138/68 Pulse Oximetry 97 08/04/18 05:00 08/04/18 06:00 08/04/18 07:00 Temperature 98.3 F Pulse Rate 74 75 76 Respiratory Rate 18 Blood Pressure 145/67 H Pulse Oximetry 98 08/04/18 08:00 08/04/18 09:00 08/04/18 10:00 Temperature Pulse Rate 76 72 76 Respiratory Rate 18 Blood Pressure Pulse Oximetry 98 08/04/18 11:00 08/04/18 12:00 08/04/18 13:00 Temperature Pulse Rate 86 86 70 Respiratory Rate 20 Blood Pressure 147/83 H Pulse Oximetry 97 08/04/18 14:00 08/04/18 15:00 Temperature Pulse Rate 80 80 Respiratory Rate Blood Pressure Pulse Oximetry Intake & Output 08/03/18 08/04/18 08/04/18 18:59 06:59 18:59 Intake Total 920 / 920 Output Total 350 / 350 1575 / 1575 Balance -350 / -350 -655 / -655 Weight 91.5 kg Intake: IV 200 / 200 Heparin/D5W 25,000 U/250 mL 25, 200 / 200 000 unit In 250 ml @ Per Protocol IV.CONT TITRATE PRN Rx #:[id number] Oral 720 / 720 Output: Urine 350 / 350 1575 / 1575 Other: Post Void Residual 3 Date of Last Bowel Movement 08/02/18 Narrative: Gen.: No acute distress Head: Normocephalic. Atraumatic. EENT: Pupils equal round and reactive to light. Nose without drainage. Cardiovascular: Regular rate and rhythm. No murmurs, rubs or gallops. Respiratory: Lungs clear to auscultation bilaterally. No wheezes or rhonchi. Abdomen: Soft, nontender, nondistended. No peritoneal signs. Musculoskeletal: No gross deformities. No edema. Skin: No obvious rashes or erythema. Neuro: Sensory and motor grossly intact. Cranial nerves II through XII grossly intact. Results - Labs CBC & Chem 7: 08/04/18 03:56 08/04/18 03:56 Laboratory Results - last 24 hr 08/04/18 08/04/18 03:56 03:56 WBC 7.1 RBC 5.01 Hgb 14.8 Hct 43.2 MCV 86.2 MCH 29.7 MCHC 34.4 RDW 13.3 Plt Count 190 MPV 8.8 Neut % (Auto) 66.0 Lymph % (Auto) 22.7 [place] % (Auto) 8.9 H Eos % (Auto) 2.2 Baso % (Auto) 0.2 Neut # (Auto) 4.7 Lymph # (Auto) 1.6 [place] # (Auto) 0.6 Eos # (Auto) 0.2 Baso # (Auto) 0.0 WBC Differential . Differential Comment Auto diff final Sodium 140 Potassium 3.8 Chloride 108 H Carbon Dioxide 26.1 Anion Gap 6 BUN 12 Creatinine 0.87 Estimated GFR 88 L Random Glucose 88 Calcium 8.1 L Assessment and Plan - Plan 63 Y/O male with history of CABG admitted with: NSTEMI: H/O CABG X5 - Appreciate Cardiology. IMAN De La Torre. S/P TERESITA to OM - Patient is to continue on Aspirin, Plavix, Metoprolol, Lipitor and Lisinopril - Patient was counseled extensively regarding the need to be compliant with above medications. - LVEF of 50% Tobacco abuse: - Patient counseled extensively regarding tobacco cessation Left hip pain: Chronic. - Will give one time dose of Monroe. I advised the patient to follow up outpatient with PCP and Orthopedics. Discharge Planning: Plan to DC in AM. IM[facility] Cardiology.
[2018-08-04] MEDS ORDERED: Sod Chloride 0.9% Inj 1,000 ML IV.SIG ONE (18:15)
--- NOTE | 2018-08-04 18:25 | ECG ---
Date Performed: 08/03/2018 Time Performed: 15:26:28 PTAGE: 63 years EKG: Normal Sinus rhythm PREVIOUS TRACING : 08/03/2018 09.51 Since the previous tracing, no significant change not ed DOCTOR: Jose Sinha Interpretating Date/Time 08/04/2018 18:23:53
--- NOTE | 2018-08-04 23:06 | P.PNCA ---
Subjective Interval history: No events overnight Feels well, no complaints Medications and Allergies Active Medications: Active Medications Aspirin (Ecotrin) 81 mg PO DAILY [facility] Last Admin: 08/04/18 09:33 Dose: 81 mg Atorvastatin Calcium (Lipitor) 80 mg PO HS [facility] Last Admin: 08/04/18 20:46 Dose: 80 mg Clopidogrel Bisulfate (Plavix) 75 mg PO DAILY [facility] Last Admin: 08/04/18 09:33 Dose: 75 mg Lisinopril (Prinivil) 5 mg PO DAILY [facility] Last Admin: 08/04/18 09:32 Dose: 5 mg Metoprolol Tartrate (Lopressor Inj) 5 mg IV.PUSH Q5M PRN PRN Reason: CHEST PAIN Last Admin: 08/03/18 02:00 Dose: 5 mg Metoprolol Tartrate (Lopressor) 12.5 mg PO BID [facility] Last Admin: 08/04/18 20:46 Dose: 12.5 mg Miscellaneous (Pill Splitter) 1 each OTHER UNSCH PRN PRN Reason: PILL SPIT Ondansetron HCl (Zofran Inj) 4 mg IV.PUSH Q6H PRN PRN Reason: NAUSEA OR VOMITING Sodium Chloride (Ns Flush) 2 ml IV.FLUSH UNSCH PRN PRN Reason: FLUSH AFTER USING IV ACCESS Last Admin: 08/03/18 09:59 Dose: 2 ml Sodium Chloride (Ns Inj) 2 ml IV.FLUSH BID [facility] Last Admin: 08/04/18 20:51 Dose: Not Given Sodium Chloride (Ns Inj) 2 ml IV.FLUSH UNSCH PRN PRN Reason: FLUSH AFTER USING IV ACCESS Sodium Chloride (Ns Flush) 2 ml IV.FLUSH BID [facility] Last Admin: 08/04/18 20:51 Dose: 2 ml Sodium Chloride (Ns Flush) 2 ml IV.FLUSH PRN PRN PRN Reason: FLUSH AFTER USING IV ACCESS Allergies Allergy/AdvReac Type Severity Reaction Status Date / Time folic acid Allergy Mild Rash Verified 08/10/17 05:42 Home Medications Medication Instructions Recorded Confirmed Type No Known Home Medications 08/03/18 08/03/18 History Physical Exam Vital signs: Vital Signs 08/04/18 00:00 08/04/18 01:00 08/04/18 02:00 Temperature Pulse Rate 84 84 84 Respiratory Rate Blood Pressure Pulse Oximetry 08/04/18 03:00 08/04/18 04:00 08/04/18 05:00 Temperature 98.2 F Pulse Rate 62 54 L 74 Respiratory Rate 18 Blood Pressure 138/68 Pulse Oximetry 97 08/04/18 06:00 08/04/18 07:00 08/04/18 08:00 Temperature 98.3 F Pulse Rate 75 76 76 Respiratory Rate 18 18 Blood Pressure 145/67 H Pulse Oximetry 98 98 08/04/18 09:00 08/04/18 10:00 08/04/18 11:00 Temperature Pulse Rate 72 76 86 Respiratory Rate 20 Blood Pressure 147/83 H Pulse Oximetry 97 08/04/18 12:00 08/04/18 13:00 08/04/18 14:00 Temperature Pulse Rate 86 70 80 Respiratory Rate Blood Pressure Pulse Oximetry 08/04/18 15:00 08/04/18 16:00 08/04/18 17:00 Temperature 98.9 F Pulse Rate 60 60 70 Respiratory Rate 20 20 Blood Pressure 129/53 L Pulse Oximetry 97 08/04/18 18:00 08/04/18 19:00 08/04/18 20:00 Temperature 98.5 F Pulse Rate 60 73 70 Respiratory Rate 20 Blood Pressure 117/55 L Pulse Oximetry 97 08/04/18 21:00 08/04/18 22:00 Temperature Pulse Rate 74 70 Respiratory Rate Blood Pressure Pulse Oximetry Intake & Output 08/04/18 08/04/18 08/05/18 06:59 18:59 06:59 Intake Total 920 / 920 880 / 880 Output Total 1575 / 1575 Balance -655 / -655 880 / 880 Weight 91.5 kg Intake: IV 200 / 200 Heparin/D5W 25,000 U/250 mL 25, 200 / 200 000 unit In 250 ml @ Per Protocol IV.CONT TITRATE PRN Rx #:[id number] Oral 720 / 720 880 / 880 Output: Urine 1575 / 1575 Other: # Voids 4 Date of Last Bowel Movement 08/04/18 Narrative: Gen.: No acute distress Head: Normocephalic. Atraumatic. EENT: Pupils equal round and reactive to light. Nose without drainage. Cardiovascular: Regular rate and rhythm. No murmurs, rubs or gallops. Respiratory: Lungs clear to auscultation bilaterally. No wheezes or rhonchi. Abdomen: Soft, nontender, nondistended. No peritoneal signs. Musculoskeletal: No gross deformities. No edema. Skin: No obvious rashes or erythema. Neuro: Sensory and motor grossly intact. Cranial nerves II through XII grossly intact. Results 08/04/18 03:56 08/04/18 03:56 Cardiac Enzymes 08/03/18 08/03/18 08/03/18 Range/Units 00:30 00:30 09:35 AST 16 (15-37) U/L Troponin I 0.38 H 0.47 H (0.02-0.05) ng/mL B-Natriuretic Peptide 20 (0-100) pg/mL 08/03/18 Range/Units 12:44 AST (15-37) U/L Troponin I 0.41 H (0.02-0.05) ng/mL B-Natriuretic Peptide (0-100) pg/mL Coagulation 08/03/18 08/03/18 08/03/18 Range/Units 00:30 01:55 09:35 PT 10.1 (9.8-11.6) sec APTT 22.2 L 30.6 H D (24.3-30.1) sec B-Natriuretic Peptide 20 (0-100) pg/mL CBC 08/03/18 08/03/18 08/04/18 Range/Units 00:30 09:35 03:56 WBC 8.8 7.7 7.1 (4.0-11.0) th/mm3 RBC 5.07 4.75 5.01 (4.50-5.90) mil/mm3 Hgb 14.8 14.3 14.8 (13.0-17.0) gm/dL Hct 43.9 40.5 43.2 (39.0-51.0) % Plt Count 205 185 190 (150-450) th/mm3 Neut # (Auto) 4.1 4.7 (1.8-7.7) th/mm3 Lymph # (Auto) 3.0 1.6 (1.0-4.8) th/mm3 [place] # (Auto) 1.2 H 0.6 (0.0-0.9) th/mm3 Eos # (Auto) 0.4 0.2 (0.0-0.4) th/mm3 Baso # (Auto) 0.1 0.0 (0.0-0.2) th/mm3 Comprehensive Metabolic Panel 08/03/18 08/04/18 Range/Units 00:30 03:56 Sodium 141 140 (136-145) meq/L Potassium 4.0 3.8 (3.5-5.1) meq/L Chloride 109 H 108 H (98-107) meq/L Carbon Dioxide 25.0 26.1 (21.0-32.0) meq/L BUN 14 12 (7-18) mg/dL Creatinine 0.98 0.87 (0.60-1.30) mg/dL Calcium 8.7 8.1 L (8.5-10.1) mg/dL AST 16 (15-37) U/L ALT 32 (12-78) U/L Alkaline Phosphatase 116 (45-117) U/L Total Protein 6.7 (6.4-8.2) g/dL Albumin 3.4 (3.4-5.0) g/dL Intake and Output 08/04/18 08/04/18 08/05/18 14:59 22:59 06:59 Intake Total 880 / 880 Balance 880 / 880 Intake: Oral 880 / 880 Other: # Voids 4 Date of Last Bowel Movement 08/04/18 Assessment and Plan - Assessment (1) NSTEMI (non-ST elevated myocardial infarction) Code(s): I21.4 - Non-ST elevation (NSTEMI) myocardial infarction Status: Acute (2) CAD (coronary artery disease) Code(s): I25.10 - Atherosclerotic heart disease of [place] coronary artery without angina pectoris Status: Acute - Plan 1) NSTEMI/CAD Hx of CABGx5 (2/5 grafts patent) s/p TERESITA to SVG to OM 2) ASA/Plavix/Metoprolol/Lipitor/Lisinopril 3) EF 50% by echo 4) Plan for discharge in the morning if stable
[2018-08-05 06:25] LABS: Hematocrit 41.7 % (39.0-51.0); Hemoglobin 14.5 gm/dL (13.0-17.0); Mean Corpuscular HGB Conc 34.8 % (32.0-36.0); Mean Corpuscular Volume 86.3 fL (80.0-100.0); Mean Platelet Volume 9.1 fL (7.0-11.0); Platelet Count 216 th/mm3 (150-450); Red Blood Count 4.83 mil/mm3 (4.50-5.90); Red Cell Distribution Width 13.5 % (11.6-17.2); White Blood Count 10.9 th/mm3 (4.0-11.0)
[2018-08-05 07:26] VITALS: BP 114/64; RESP 20; TEMP 98.6
--- NOTE | 2018-08-05 08:55 | P.DS ---
Date of admission: 08/03/18 02:00 Primary care physician: No Primary Care Physician Brief History from admission: HPI as documented by the admitting physician: 63-year-old male with a past medical history significant for coronary artery disease status post CABG x5 presents to the emergency department for the evaluation of chest pain. The patient reports that yesterday morning after work he had a sharp chest pain followed by emesis. He denies any diaphoresis or shortness of breath. He reports that the chest pain continued intermittently all day and he had elevated blood pressures at home. He took a 325 mg aspirin and took a nap. He went to work earlier this evening and when he was walking down the woods his chest pain returned. He described it as a pressure at that time. He states that his nausea also returned. He denies any fever/chills. No abdominal pain. No lateralizing signs/symptoms. Patient update on day of discharge: Patient reports he is feeling okay today. No chest pain or shortness of breath. DS: Diagnosis - Discharge Diagnosis (1) CAD (coronary artery disease) Status: Acute (2) NSTEMI (non-ST elevated myocardial infarction) Status: Acute (3) Tobacco abuse Status: Acute DS: Medications - Discharge Medications Prescriptions: aspirin 81 mg PO DAILY #30 tab atorvastatin 80 mg PO HS #30 tab clopidogrel [Plavix] 75 mg PO DAILY #30 tab lisinopril 5 mg PO DAILY #30 tab metoprolol tartrate 12.5 mg PO BID #60 tab DS: Summary Hospital Course: 63 Y/O male with history of CABG admitted with NSTEMI. The patient underwent heart catheterization by Dr. De La Torre. Status post TERESITA to . He did well post cath. 2D echo showed preserved LVEF. The patient is to continue on Aspirin, Plavix, Metoprolol, Lipitor and Lisinopril. The patient was counseled extensively regarding the need to be compliant with the above medications. He was strongly counseled to stop smoking. Left hip pain: Chronic. -He was given 1 dose of [place] which helped with his pain. He is advised to follow-up outpatient with PCP and orthopedics. - Time Spent with Patient Total time spent providing and/or coordinating discharge services: Less than 30 minutes - Quality: VTE Deep Vein Thrombosis/Pulmonary Embolism Present on Admission: No Exam Vital signs: Vital Signs 08/04/18 09:00 08/04/18 10:00 08/04/18 11:00 Temperature Pulse Rate 72 76 86 Respiratory Rate 20 Blood Pressure 147/83 H Pulse Oximetry 97 08/04/18 12:00 08/04/18 13:00 08/04/18 14:00 Temperature Pulse Rate 86 70 80 Respiratory Rate Blood Pressure Pulse Oximetry 08/04/18 15:00 08/04/18 16:00 08/04/18 17:00 Temperature 98.9 F Pulse Rate 60 60 70 Respiratory Rate 20 20 Blood Pressure 129/53 L Pulse Oximetry 97 08/04/18 18:00 08/04/18 19:00 08/04/18 20:00 Temperature 98.5 F Pulse Rate 60 73 70 Respiratory Rate 20 Blood Pressure 117/55 L Pulse Oximetry 97 08/04/18 21:00 08/04/18 22:00 08/04/18 23:00 Temperature 98.4 F Pulse Rate 74 70 73 Respiratory Rate 18 Blood Pressure 102/52 L Pulse Oximetry 95 08/05/18 00:00 08/05/18 01:00 08/05/18 02:00 Temperature Pulse Rate 58 L 70 58 L Respiratory Rate Blood Pressure Pulse Oximetry 08/05/18 03:00 08/05/18 04:00 08/05/18 05:00 Temperature 98.5 F Pulse Rate 64 72 58 L Respiratory Rate 18 Blood Pressure 110/67 Pulse Oximetry 97 08/05/18 06:00 08/05/18 07:00 Temperature 98.6 F Pulse Rate 70 70 Respiratory Rate 20 Blood Pressure 114/64 Pulse Oximetry 94 L Intake & Output 08/04/18 08/05/18 08/05/18 18:59 06:59 18:59 Intake Total 880 / 880 240 / 240 Output Total 300 / 300 Balance 880 / 880 -60 / -60 Weight 91.5 kg Intake: Oral 880 / 880 240 / 240 Output: Urine 300 / 300 Other: # Voids 4 Date of Last Bowel Movement 08/04/18 Narrative: Gen.: No acute distress Head: Normocephalic. Atraumatic. EENT: Pupils equal round and reactive to light. Nose without drainage. Cardiovascular: Regular rate and rhythm. No murmurs, rubs or gallops. Respiratory: Lungs clear to auscultation bilaterally. No wheezes or rhonchi. Abdomen: Soft, nontender, nondistended. No peritoneal signs. Musculoskeletal: No gross deformities. No edema. Skin: No obvious rashes or erythema. Neuro: Sensory and motor grossly intact. Cranial nerves II through XII grossly intact. Results Procedures completed during hospitalization: Heart Cath Labs on day of discharge: Labs from last 24 hours 08/05/18 05:52 WBC 10.9 RBC 4.83 Hgb 14.5 Hct 41.7 MCV 86.3 MCH 30.0 MCHC 34.8 RDW 13.5 Plt Count 216 MPV 9.1 Discharge Plan - Discharge Disposition Patient Disposition: 01 Discharge Home - Discharge Condition Condition: Good - Discharge Order Discharge Orders: Discharge Order (Routine); Ordered 08/05/18 Ordered By: Jacob Gaffney - Physicians Team Primary Care Provider: Primary Care Zohreh Masters Attending Provider: Jacob Gaffney Other Providers: David Trivedi MD
[2018-08-05] MEDS: Lisinopril 5 MG Tablet PO SCH (10:30)
[2018-08-05] MEDS: Metoprolol Tartrate 25 MG Tablet PO SCH (10:30)
[2018-08-05 12:31] VITALS: PULSE 78
--- NOTE | 2018-08-05 12:39 | P.PNCA ---
Subjective Interval history: Had an episode of pruritus after receiving Horace for his hip pain No chest pain/SOB Medications and Allergies Active Medications: Active Medications Aspirin (Ecotrin) 81 mg PO DAILY [facility] Last Admin: 08/05/18 10:29 Dose: 81 mg Atorvastatin Calcium (Lipitor) 80 mg PO HS [facility] Last Admin: 08/04/18 20:46 Dose: 80 mg Clopidogrel Bisulfate (Plavix) 75 mg PO DAILY [facility] Last Admin: 08/05/18 10:30 Dose: 75 mg Lisinopril (Prinivil) 5 mg PO DAILY [facility] Last Admin: 08/05/18 10:30 Dose: 5 mg Metoprolol Tartrate (Lopressor Inj) 5 mg IV.PUSH Q5M PRN PRN Reason: CHEST PAIN Last Admin: 08/03/18 02:00 Dose: 5 mg Metoprolol Tartrate (Lopressor) 12.5 mg PO BID [facility] Last Admin: 08/05/18 10:30 Dose: 12.5 mg Miscellaneous (Pill Splitter) 1 each OTHER UNSCH PRN PRN Reason: PILL SPIT Ondansetron HCl (Zofran Inj) 4 mg IV.PUSH Q6H PRN PRN Reason: NAUSEA OR VOMITING Sodium Chloride (Ns Flush) 2 ml IV.FLUSH UNSCH PRN PRN Reason: FLUSH AFTER USING IV ACCESS Last Admin: 08/03/18 09:59 Dose: 2 ml Sodium Chloride (Ns Inj) 2 ml IV.FLUSH BID [facility] Last Admin: 08/05/18 10:31 Dose: Not Given Sodium Chloride (Ns Inj) 2 ml IV.FLUSH UNSCH PRN PRN Reason: FLUSH AFTER USING IV ACCESS Sodium Chloride (Ns Flush) 2 ml IV.FLUSH BID [facility] Last Admin: 08/05/18 10:30 Dose: 2 ml Sodium Chloride (Ns Flush) 2 ml IV.FLUSH PRN PRN PRN Reason: FLUSH AFTER USING IV ACCESS Allergies Allergy/AdvReac Type Severity Reaction Status Date / Time folic acid Allergy Mild Rash Verified 08/10/17 05:42 Home Medications Medication Instructions Recorded Confirmed Type No Known Home Medications 08/03/18 08/03/18 History Physical Exam Vital signs: Vital Signs 08/04/18 13:00 08/04/18 14:00 08/04/18 15:00 Temperature 98.9 F Pulse Rate 70 80 60 Respiratory Rate 20 Blood Pressure 129/53 L Pulse Oximetry 97 08/04/18 16:00 08/04/18 17:00 08/04/18 18:00 Temperature Pulse Rate 60 70 60 Respiratory Rate 20 Blood Pressure Pulse Oximetry 08/04/18 19:00 08/04/18 20:00 08/04/18 21:00 Temperature 98.5 F Pulse Rate 73 70 74 Respiratory Rate 20 Blood Pressure 117/55 L Pulse Oximetry 97 08/04/18 22:00 08/04/18 23:00 08/05/18 00:00 Temperature 98.4 F Pulse Rate 70 73 58 L Respiratory Rate 18 Blood Pressure 102/52 L Pulse Oximetry 95 08/05/18 01:00 08/05/18 02:00 08/05/18 03:00 Temperature 98.5 F Pulse Rate 70 58 L 64 Respiratory Rate 18 Blood Pressure 110/67 Pulse Oximetry 97 08/05/18 04:00 08/05/18 05:00 08/05/18 06:00 Temperature Pulse Rate 72 58 L 70 Respiratory Rate Blood Pressure Pulse Oximetry 08/05/18 07:00 08/05/18 08:00 08/05/18 09:00 Temperature 98.6 F Pulse Rate 70 72 74 Respiratory Rate 20 Blood Pressure 114/64 Pulse Oximetry 94 L 08/05/18 10:00 08/05/18 11:00 Temperature Pulse Rate 78 78 Respiratory Rate Blood Pressure Pulse Oximetry Intake & Output 08/04/18 08/05/18 08/05/18 18:59 06:59 18:59 Intake Total 880 / 880 240 / 240 Output Total 300 / 300 Balance 880 / 880 -60 / -60 Weight 91.5 kg Intake: Oral 880 / 880 240 / 240 Output: Urine 300 / 300 Other: # Voids 4 Date of Last Bowel Movement 08/04/18 Narrative: Gen.: No acute distress Head: Normocephalic. Atraumatic. EENT: Pupils equal round and reactive to light. Nose without drainage. Cardiovascular: Regular rate and rhythm. No murmurs, rubs or gallops. Respiratory: Lungs clear to auscultation bilaterally. No wheezes or rhonchi. Abdomen: Soft, nontender, nondistended. No peritoneal signs. Musculoskeletal: No gross deformities. No edema. Skin: No obvious rashes or erythema. Neuro: Sensory and motor grossly intact. Cranial nerves II through XII grossly intact. Results 08/05/18 05:52 08/04/18 03:56 Cardiac Enzymes 08/03/18 Range/Units 12:44 Troponin I 0.41 H (0.02-0.05) ng/mL CBC 08/04/18 08/05/18 Range/Units 03:56 05:52 WBC 7.1 10.9 (4.0-11.0) th/mm3 RBC 5.01 4.83 (4.50-5.90) mil/mm3 Hgb 14.8 14.5 (13.0-17.0) gm/dL Hct 43.2 41.7 (39.0-51.0) % Plt Count 190 216 (150-450) th/mm3 Neut # (Auto) 4.7 (1.8-7.7) th/mm3 Lymph # (Auto) 1.6 (1.0-4.8) th/mm3 [place] # (Auto) 0.6 (0.0-0.9) th/mm3 Eos # (Auto) 0.2 (0.0-0.4) th/mm3 Baso # (Auto) 0.0 (0.0-0.2) th/mm3 Comprehensive Metabolic Panel 08/04/18 Range/Units 03:56 Sodium 140 (136-145) meq/L Potassium 3.8 (3.5-5.1) meq/L Chloride 108 H (98-107) meq/L Carbon Dioxide 26.1 (21.0-32.0) meq/L BUN 12 (7-18) mg/dL Creatinine 0.87 (0.60-1.30) mg/dL Calcium 8.1 L (8.5-10.1) mg/dL Intake and Output 08/04/18 08/05/18 08/05/18 22:59 06:59 14:59 Intake Total 880 / 880 240 / 240 Output Total 300 / 300 Balance 880 / 880 -60 / -60 Intake: Oral 880 / 880 240 / 240 Output: Urine 300 / 300 Other: # Voids 4 Date of Last Bowel Movement 08/04/18 Weight 91.5 kg Assessment and Plan - Assessment (1) NSTEMI (non-ST elevated myocardial infarction) Code(s): I21.4 - Non-ST elevation (NSTEMI) myocardial infarction Status: Acute (2) CAD (coronary artery disease) Code(s): I25.10 - Atherosclerotic heart disease of [place] coronary artery without angina pectoris Status: Acute - Plan 1) NSTEMI/CAD 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
[2018-08-05 14:19] VITALS: O2SAT 98
== END 2018-08-05 12:39 | disposition home or self-care (01) ==
LOC: NEPE 23:55 → NEDA 08-03 02:00 → HCIS 08-03 04:27
PROVIDERS: ADMIT Family Medicine; ATTEND Family Medicine